=== PATIENT | male | born 1980 | race Caucasian/White ===

== ENCOUNTER 2017-09-16 18:42 | Emergency (ER) | payer BC ==
[~2017-09-16] VITALS: Ht 195.6 cm; Wt 145.1 kg
[~2017-09-16 18:42] MED LIST: AMOXICILLIN250 MG PO; CEFDINIR300 MG PO; FLAGYL500 MG PO; FLUOXETINE HCL20 MG PO; NICODERM CQ1 EAC2 TOP; NORCO 10-325 T1 EACH PO; PEPCID20 MG PO; ZOFRAN ODT4 MG PO; ZOLOFT25 MG
--- OUTSIDE RECORDS SUMMARY | 2017-09-16 18:44 | XMS REPORT | Clinical Summary ---
Author Author [facility] Address Unknown Phone Unavailable Care Team Providers Care Ripening Room Operator Name Role Phone Peter Yoder MD PCP Unavailable Allergies Active Allergy Reactions Severity Noted Date Comments Succinylcholine Other (See Comments) 03/26/2017 "pseudocholinesterase deficiency" Current Medications Prescription Sig. Disp. Refills Start End Date Status Date FLUoxetine (PROzac) 40 MG Take 40 mg by mouth Active capsule daily. methocarbamol (ROBAXIN) Take 750 mg by mouth 3 03/27/20 Discontin 750 MG tablet (three) times a day as 17 ued needed for muscle spasms. atorvastatin (LIPITOR) 20 Take 20 mg by mouth 03/27/20 Discontin MG tablet daily. Default OP ins 17 ued celecoxib (CeleBREX) 200 Take 200 mg by mouth 2 03/27/20 Discontin MG capsule (two) times a day. 17 ued acetaminophen-codeine Take 1 tablet by mouth 03/27/20 Discontin (TYLENOL WITH CODEINE #3) every 4 (four) hours as 17 ued 300-30 mg per tablet needed for moderate pain. ondansetron ODT Take 1 tablet (4 mg 03/27/20 04/26/20 (ZOFRAN-ODT) 4 MG total) by mouth every 8 17 17 disintegrating tablet (eight) hours as needed for nausea or vomiting for up to 30 days. enoxaparin (LOVENOX) 40 Inject 0.4 mL (40 mg 12 mL 0 03/27/20 mg/0.4 mL syringe total) under the skin 17 17 daily for 14 days. ACETAMINOPHEN WITH Take 15 mL by mouth every 400 mL 0 03/27/2004/11 CODEINE 4 (four) hours as needed 17 17 (ACETAMINOPHEN-CODEINE) (Pain) for up to 15 days. 120 mg-12 mg /5 mL (5 mL) solution pantoprazole (PROTONIX) Take 1 tablet (40 mg 30 tablet 0 03/27/20 40 MG EC tablet total) by mouth daily for 17 17 30 days. Active Problems Problem Noted Date Morbid obesity with BMI of 40.0-44.9, adult 03/26/2017 Diabetes mellitus 03/26/2017 Encounters Date Type Specialty Care Team Description 03/27/2017 [facility] Radiology Vijay Juarez Encounter MD Remi 03/26/2017 [facility] General Internal Medicine Vijay Juarez - Encounter MD Remi 03/27/2017 03/26/2017 Anesthesia General Surgery Kemar Butcher Event MD 03/26/2017 Procedure Pass General Surgery 03/26/2017 Surgery General Surgery Vijay Juarez LAPAROSCOPIC SLEEVE MD Remi GASTRECTOMY 03/12/2017 [facility] Radiology Vijay Juarez Morbid obesity, Encounter MD Remi unspecified obesity type 03/12/2017 Pre-Admit Pre-Admission Testing Vijay Juarez Morbid obesity, Testing MD Remi unspecified obesity type Appointment (Primary Dx) 02/21/2017 Transcribe Access Vijay Juarez Morbid obesity with BMI Orders MD Remi of 40.0-44.9, adult (Primary Dx) after 09/15/2016 Family History Medical History Relation Name Comments Diabetes Father Heart disease Mother Hyperlipidemia Mother Relation Name Status Comments Father Alive Mother Alive Social History Tobacco Use Types Packs/Day Years Used Date Never Smoker Smokeless Tobacco: Chew Current User Tobacco Cessation: Counseling Given: Yes Comments: chew tobaccos all day and surgeon aware Alcohol Use Drinks/Week oz/Week Comments Yes ocassionaly Sex Assigned at Date Recorded Not on file Last Filed Vital Signs Vital Sign Reading Time Taken Blood Pressure 161/83 03/27/2017 5:35 PM CDT Pulse 74 03/27/2017 5:35 PM CDT Temperature 37.3 C (99.1 F) 03/27/2017 4:07 PM CDT Respiratory Rate 24 03/27/2017 4:07 PM CDT Oxygen Saturation 97% 03/27/2017 4:07 PM CDT Inhaled Oxygen - - Concentration Weight 147 kg (324 lb 3 oz) 03/26/2017 4:00 PM CDT Height 193 cm (6' 4") 03/26/2017 4:00 PM CDT Body Mass Index 39.46 03/26/2017 4:00 PM CDT Plan of Treatment Health Maintenance Due Date Last Done Comments FOOT EXAM 10/31/1991 OPHTHALMOLOGY EXAM 10/31/1991 URINE MICROALBUMIN 10/31/1991 INFLUENZA VACCINE 03/11/2017 Implants Implanted Type Area Distribution Lineman Device Expiration Model / Identifier Date Serial / Lot Stapler Surgcl [facility]opath [facility] Anterior: W L GORE 2019 [id number] Flex 60 Endoscpc - [id number] Implants; Abdomen, / Implanted: 03/26/2017 (Quantity not Expanders; Middle / on file) Extenders; Quadrant/N [id number] Surgical on [id number] Wires Specific A Stapler Surgcl [facility] Surgical Anterior: W L GORE 2019 [id number] Flex 60 Endoscpc - [id number] Implants; Abdomen, / Implanted: 03/26/2017 (Quantity not Expanders; Middle / on file) Extenders; Quadrant/N [id number] Surgical on [id number] Wires Specific A Stapler Surgcl [facility] Surgical Anterior: W L GORE 2019 [id number] Flex 60 Endoscpc - [id number] Implants; Abdomen, / Implanted: 03/26/2017 (Quantity not Expanders; Middle / on file) Extenders; Quadrant/N [id number] Surgical on [id number] Wires Specific A Stapler Surgcl Endopath [facility] Surgical Anterior: W L GORE 2019 [id number] Flex 60 Endoscpc - [id number] Implants; Abdomen, / Implanted: 03/26/2017 (Quantity not Expanders; Middle / on file) Extenders; Quadrant/N [id number] Surgical on [id number] Wires Specific A Stapler Surgcl [facility] Surgical Anterior: W L GORE 2019 [id number] Flex 60 Endoscpc - [id number] Implants; Abdomen, / Implanted: 03/26/2017 (Quantity not Expanders; Middle / on file) Extenders; Quadrant/N [id number] Surgical on [id number] Wires Specific A [facility] N/A: [employer]ON 02/08/2020 [id number] / Implanted: Qty: 3 on 03/26/2017 by Abdomen ENDO-SURGERY / Vijay Juarez MD [id number] [facility] N/A: [employer] 09/10/2019 [id number] / Implanted: Qty: 1 on 03/26/2017 by Angelo / Vijay Juarez MD [id number] [facility] N/A: [employer] 01/09/2020 [id number] / Implanted: Qty: 1 on 03/26/2017 by Angelo / Vijay Juarez MD [id number] Procedures Procedure Name Priority Date/Time Associated Diagnosis Comments W[place] AN ELECTIVE Routine 03/26/2017 ENDOTRACHEAL AIRWAY 1:11 PM CDT Procedure Note - Kemar Butcher MD - 03/26/2017 1:10 PM CDT Airway Date/Time: 03/26/2017 12:52 PM Performed by: KEMAR BUTCHER Authorized by: KEMAR BUTCHER Location: OR Urgency: Elective Difficult Airway: No Anesthesio logist: KEMAR BUTCHER Preoxygena chance with 100% O2: Yes C-spine Precaution s Maintained Throughout : Yes Mask Ventilatio n: Easy mask Final Airway Type: Endotrache al airway Final Endotrache al Airway: ETT Cuffed: Yes Technique Used: Direct laryngosco py Devices/Me thods Used in Placement: Intubatin g stylet Insertion Site: Oral Blade Type: Brittany Laryngosco pe Blade/Vide olaryngosc ope Blade Size: 4 ETT Size (mm): 7.0 Cuff at minimum occlusion pressure: Yes Measured from: Lips ETT to Lips (cm): 24 Laryngosco pic view: Grade IIa - partial view of glottis Rapid Sequence Induction (RSI): No Modified RSI: No Number of Attempts at Approach: 1 LAPAROSCOPIC SLEEVE 03/26/2017 Morbid obesity due to GASTRECTOMY 12:00 PM CDT excess calories Special Needs O/P, NO SPEC, LISSETTE HUERTA TO ASSIST after 09/15/2016 Results * FL Upper GI (03/27/2017 9:13 AM) Specimen Performing Laboratory [facility] [address] [place] [address] Narrative EXAMINATION: FL UPPER GI CLINICAL HISTORY: Post Op, sleeve COMPARISON: None. TECHNIQUE: A single contrast study was performed. Water-soluble contrast was used. Fluoroscopic and overhead images were obtained. FINDINGS: The esophagus demonstrates normal peristalsis and mucosa. There is no gastroesophageal reflux, hiatal hernia, stricture or persistent filling defect. Postoperative changes from sleeve gastrectomy are seen. Contrast traverses the operative site without delay. There is no extravasation. The antrum and duodenum are free of masses and ulcerations. IMPRESSION: Satisfactory appearance post sleeve gastrectomy. No extravasation. Fluoroscopy time: 0.7 minutes Dose area product: 820.21 uGy*m2 Reference air Kerma: 33.10 mGy [id number] Procedure Note Hm Interface, Radiology Results Incoming - 03/27/2017 9:21 AM CDT EXAMINATION: FL UPPER GI CLINICAL HISTORY: Post Op, sleeve COMPARISON: None. TECHNIQUE: A single contrast study was performed. Water-soluble contrast was used. Fluoroscopic and overhead images were obtained. FINDINGS: The esophagus demonstrates normal peristalsis and mucosa. There is no gastroesophageal reflux, hiatal hernia, stricture or persistent filling defect. Postoperative changes from sleeve gastrectomy are seen. Contrast traverses the operative site without delay. There is no extravasation. The antrum and duodenum are free of masses and ulcerations. IMPRESSION: Satisfactory appearance post sleeve gastrectomy. No extravasation. Fluoroscopy time: 0.7 minutes Dose area product: 820.21 uGy*m2 Reference air Kerma: 33.10 mGy [id number] * Estimated GFR (03/27/2017 5:35 AM) Only the most recent of 2 results within the time period is included. Component Value Ref Range GFR Non Af Amer >90 mL/min/1.73 m2 GFR Af Amer >90 mL/min/1.73 m2 Comment: Chronic kidney disease: <60 mL/min/1.73m2 Kidney failure: <15 mL/min/1.73m2 The estimated GFR is calculated from the IDMS-traceable Modification of Diet in Renal Disease Equation. The accuracy of the calculation is poor when the creatinine is normal. Calculated values >90 mL/min/1.73m2 are not reported. This equation has not been validated in children (<18 years), women, the elderly (>70 years), or ethnic groups other than Caucasians and Americans. Specimen Performing Laboratory Plasma specimen [facility] DEPARTMENT OF PATHOLOGY AND GENOMIC MEDICINE [address] [place] [address]. [address] [place] [address] * CBC with platelet and differential (03/27/2017 5:35 AM) Only the most recent of 2 results within the time period is included. Component Value Ref Range WBC 11.8 (H) 4.5 - 11.0 k/uL RBC 4.76 4.40 - 6.00 M/uL HGB 14.0 14.0 - 18.0 g/dL HCT 42.7 41.0 - 51.0 % MCV 89.7 82.0 - 100.0 fL MCH 29.4 27.0 - 34.0 pg MCHC 32.8 31.0 - 37.0 g/dL RDW - SD 45.7 37.0 - 55.0 fL MPV 9.7 8.8 - 13.2 fL Platelet count 226 150 - 400 K/uL Nucleated RBC 0.00 /100 WBC Neutrophils 83.8 (H) 39.0 - 69.0 % Lymphocytes 9.1 (L) 25.0 - 45.0 % Monocytes 6.1 0.0 - 10.0 % Eosinophils 0.1 0.0 - 5.0 % Basophils 0.2 0.0 - 1.0 % Immature granulocytes 0.7Comment: "Immature granulocytes" 0.0 - 1.0 % (promyelocytes, myelocytes, metamyelocytes) Specimen Performing Laboratory Blood [facility] DEPARTMENT OF PATHOLOGY AND GENOMIC MEDICINE [address] [place] [address] * Basic metabolic panel (03/27/2017 5:35 AM) Only the most recent of 2 results within the time period is included. Component Value Ref Range Sodium 136 135 - 148 mEq/L Potassium 4.3 3.5 - 5.0 mEq/L Chloride 101 99 - 109 mEq/L CO2 21 (L) 24 - 31 mEq/L Anion gap 14 7 - 15 mEq/L Comment: Starting from November , anion gap calculation no longer incorporates potassium. Please note the change. BUN 9 8 - 24 mg/dL Creatinine 0.7 0.5 - 1.5 mg/dL Glucose 101 (H) 65 - 99 mg/dL Calcium 10.8 (H) 8.6 - 10.6 mg/dL Specimen Performing Laboratory Plasma specimen [facility] DEPARTMENT OF PATHOLOGY AND GENOMIC MEDICINE [address] [place] [address]. [address] [place] [address] * XR Chest 2 Vw (03/12/2017 10:00 AM) Specimen Performing Laboratory [facility] [address] [place] [address] Narrative EXAMINATION:XR CHEST 2 VW CLINICAL HISTORY:E66.01 Morbid (severe) obesity due to excess calories, PREOP COMPARISON:None IMPRESSION: The lungs are clear. The mediastinal contours and cardiac silhouette are unremarkable. The bones are unremarkable. [id number] Procedure Note Interface, Radiology Results Incoming - 03/12/2017 10:39 AM CDT EXAMINATION: XR CHEST 2 VW CLINICAL HISTORY: E66.01 Morbid (severe) obesity due to excess calories, PREOP COMPARISON: None IMPRESSION: The lungs are clear. The mediastinal contours and cardiac silhouette are unremarkable. The bones are unremarkable. [id number] * Prothrombin time with INR (03/12/2017 9:10 AM) Component Value Ref Range Prothrombin time 12.7 12.0 - 15.0 sec INR 1.0 Comment: The International Normalized Ratio (INR) is a therapeutic monitoring tool for patients who are stable on oral anticoagulant therapy. An INR of 2.0-3.0 is suggested for deep vein thrombosis/pulmonary embolism. Specimen Performing Laboratory Blood [facility] DEPARTMENT OF PATHOLOGY AND GENOMIC MEDICINE [address] [place] [address]. [address] [place] [phone] after 09/15/2016
[2017-09-16] MEDS ORDERED: KETOROLAC TROMETHAMINE 60 MG/2 ML VIAL IM ONE (20:00)
[2017-09-16 20:58] VITALS: BP 142/89
== END 2017-09-16 21:02 | disposition home or self-care (01) ==
LOC: ER 18:42
DX: M54.5 Low back pain (principal); M54.16 Radiculopathy, lumbar region; G93.5 Compression of brain; F32.9 Major depressive disorder, single episode, unspecified; E66.9 Obesity, unspecified
CPT/HCPCS: 99282; J1885

== ENCOUNTER 2017-09-17 12:01 | Emergency (ER) | payer BC ==
[~2017-09-17] VITALS: Ht 195.6 cm; Wt 145.1 kg
--- OUTSIDE RECORDS SUMMARY | 2017-09-17 12:04 | XMS REPORT | Continuity of Care Document ---
Author Author [facility] Organization [facility] Address [address] [place] [address] Phone Unavailable Care Team Providers Care Molder Floor Name Role Phone CONCHA DE LA CRUZ MD PCP Insurance Providers Guarantor Bonifacio Lopez Address [address] [place] [address] Email NONE Payer Blue [employer] Exchange Policy Number [id number] Subscriber's Name JaniceDylanbess Anderson Relationship 18 Self / Same As Patient Group Number [id number] Advance Directives Directive Response Recorded Date/Time Does the patient have an advance directive? No 11/04/15 5:09pm If yes, is advance directive on file with [facility]? No 11/04/15 5:09pm If not on file with [facility] will patient provide a copy? No 11/04/15 5:09pm Problems Medical Problem Onset Date Status Confusion and disorientation 11/04/2015 Acute Dehydration 11/04/2015 Acute Medications Current Home Medications Medication Dose Units Route Directions Days Qty Instructions Start Date Famotidine (Pepcid) 20 Mg Tablet 20 Mg Oral Twice Daily Before Meals 30 Days 11/06/15 Fluoxetine Hcl 20 Mg Capsule 40 Mg Oral Daily 30 Cap Hydrocodone Bit/Acetaminophen (Lutcher 10-325 Tablet) 1 Each Tablet 10 Mg Oral Every 4 Hours Metronidazole (Flagyl) 500 Mg Tablet 250 Mg Oral Every 8 Hours 15 11/06/15 Nicotine (Nicoderm Cq) 1 Each Patch.td24 21 Mg Topically Daily 21 Each 11/06/15 Ondansetron (Zofran Odt) 4 Mg Tab.rapdis 4 Mg Oral Every 6 Hours Past Home Medications Medication Directions Ordered Status Amoxicillin 250 Mg Capsule, 500 Mg Oral Three Times A Day Discontinued Cefdinir (Omnicef) 300 Mg Capsule, 300 Mg Oral Daily Discontinued Sertraline Hcl (Zoloft) 25 Mg Tablet, Discontinued Social History Social History Problem Response Recorded Date/Time Onset Date Status Hx Psychiatric Problems Yes 11/04/2015 5:09pm Not Applicable Not Applicable Hx Eating Disorder No 11/04/2015 5:09pm Not Applicable Not Applicable Hx Substance Use Disorder No 11/04/2015 5:09pm Not Applicable Not Applicable Hx Depression Yes 11/04/2015 5:09pm Not Applicable Not Applicable Hx Alcohol Use Y - socially 11/04/2015 5:09pm Not Applicable Not Applicable Hx Substance Use Treatment No 11/04/2015 5:09pm Not Applicable Not Applicable Hx Physical Abuse No 11/04/2015 5:09pm Not Applicable Not Applicable Smoking Status Start Date Stop Date Current every day smoker Hospital Discharge Instructions No hospital discharge instruction information available. Plan of Care Discharge Date 09/16/17 9:02pm Disposition HOME, SELF-CARE Condition at Discharge Stable Instructions/Education Provided Back Pain Forms Provided Work/School Excuse Prescriptions See Medication Section Additional Instructions/Education FOLLOW UP WITH DR. ED LA CRUZ TOMORROW Functional Status No functional status information available. Allergies, Adverse Reactions, Alerts No known allergies. Immunizations No immunization information available. Vital Signs Acute Vital Signs Vital Response Date/Time Temperature (Fahrenheit) 97.4 degrees F (97.6 - 99.5) 09/16/2017 8:58pm Pulse Pulse Rate (adult) 79 bpm (60 - 90) 09/16/2017 8:58pm Respiratory Rate 18 bpm (12 - 24) 09/16/2017 8:58pm Blood Pressure 142/89 mm Hg 09/16/2017 8:58pm Height 6 ft 5 in 09/16/2017 7:43pm Weight 320 lb 09/16/2017 7:43pm Body Mass Index 37.9 kg/m^2 09/16/2017 7:43pm Results No relevant diagnostic test, laboratory data and/or discharge summary information available. Procedures No procedure information available. Encounters Encounter Location Arrival/Admit Date Discharge/Depart Date Attending Provider Departed Emergency Room [facility] 09/16/17 6:42pm 9:02pm SELENA TANG MD
--- OUTSIDE RECORDS SUMMARY | 2017-09-17 12:04 | XMS REPORT | Clinical Summary ---
Author Author [facility] Address Unknown Phone Unavailable Care Team Providers Care Truck Caterer Name Role Phone Peter Yoder MD PCP [...] Date Type Specialty Care Team Description 03/27/2017 [facility] Radiology Vijay Juarez Encounter MD Remi 03/26/2017 [facility] General Internal Medicine Vijay Juarez - Encounter MD Remi 03/27/2017 03/26/2017 Anesthesia General Surgery Kemar Butcher Event MD 03/26/2017 Procedure Pass General Surgery 03/26/2017 Surgery General Surgery Vijay Juarez LAPAROSCOPIC SLEEVE MD Remi GASTRECTOMY 03/12/2017 [facility] Radiology Vijay Juarez Morbid obesity, Encounter MD Remi unspecified obesity type 03/12/2017 Pre-Admit Pre-Admission Testing Vijay Juarez Morbid obesity, Testing MD Remi unspecified obesity type Appointment (Primary Dx) 02/21/2017 Transcribe Access Vijay Juarez Morbid obesity with BMI Orders MD Remi of 40.0-44.9, adult (Primary Dx) after 09/16/2016 Family History Medical History Relation Name Comments [...] INFLUENZA VACCINE 03/11/2017 Implants Implanted Type Area Panama Hat Blocker Device Expiration Model / Identifier Date Serial / Lot Stapler Surgcl Endopath [facility] Anterior: W L GORE 2019 [id number] Flex 60 Endoscpc - [id number] Implants; Abdomen, / Implanted: 03/26/2017 (Quantity not Expanders; Middle / on file) Extenders; Quadrant/N [id number] Surgical on [id number] Wires Specific A Stapler Surgcl [facility] Anterior: W L GORE 2019 [id number] Flex 60 Endoscpc - [id number] Implants; Abdomen, / Implanted: 03/26/2017 (Quantity not Expanders; Middle / on file) Extenders; Quadrant/N [id number] Surgical on [id number] Wires Specific A Stapler Surgcl [facility] Anterior: W L GORE 2019 [id number] Flex 60 Endoscpc - [id number] Implants; Abdomen, / Implanted: 03/26/2017 (Quantity not Expanders; Middle / on file) Extenders; Quadrant/N [id number] Surgical on [id number] Wires Specific A Stapler Surgcl [facility] Anterior: W L GORE 2019 [id number] Flex 60 Endoscpc - [id number] Implants; Abdomen, / Implanted: 03/26/2017 (Quantity not Expanders; Middle / on file) Extenders; Quadrant/N [id number] Surgical on [id number] Wires Specific A Stapler Surgcl [facility] Anterior: W L GORE 2019 [id number] Flex 60 Endoscpc - [id number] Implants; Abdomen, / Implanted: 03/26/2017 (Quantity not Expanders; Middle / on file) Extenders; Quadrant/N [id number] Surgical on [id number] Wires Specific A [facility] N/A: [employer] 02/08/2020 [id number] / Implanted: Qty: 3 on 03/26/2017 by Abdomen ENDO-SURGERY / Vijay Juarez MD [id number] [facility] N/A: [employer] 09/10/2019 [id number] / Implanted: Qty: 1 on 03/26/2017 by Angelo / Vijay Juarez MD [id number] [facility] N/A: [employer] 01/09/2020 [id number] / Implanted: Qty: 1 on 03/26/2017 by Angelo / Vijay Juarez MD [id number] Procedures Procedure Name Priority Date/Time Associated Diagnosis Comments [place] AN ELECTIVE Routine 03/26/2017 ENDOTRACHEAL AIRWAY 1:11 [...] NO SPEC, LISSETTE HUERTA TO ASSIST after 09/16/2016 Results * FL Upper GI (03/27/2017 9:13 AM) Specimen Performing Laboratory [facility] [address] [place] [address] Narrative EXAMINATION: FL UPPER GI CLINICAL HISTORY: [...] 820.21 uGy*m2 Reference air Kerma: 33.10 mGy [id number] Procedure Note Hm Interface, Radiology Results Incoming [...] 820.21 uGy*m2 Reference air Kerma: 33.10 mGy [id number] * Estimated GFR (03/27/2017 5:35 AM) Only [...] and Americans. Specimen Performing Laboratory Plasma specimen [facility] DEPARTMENT OF PATHOLOGY AND GENOMIC MEDICINE [address] [place] [address]. [address] [place] [address] * CBC with platelet and differential (03/27/2017 [...] (promyelocytes, myelocytes, metamyelocytes) Specimen Performing Laboratory Blood [facility] DEPARTMENT OF PATHOLOGY AND GENOMIC MEDICINE [address] [place] [address] * Basic metabolic panel (03/27/2017 5:35 AM) [...] 10.6 mg/dL Specimen Performing Laboratory Plasma specimen [facility] DEPARTMENT OF PATHOLOGY AND GENOMIC MEDICINE [address] [place] [address]. [address] [place] [address] * XR Chest 2 Vw (03/12/2017 10:00 AM) Specimen Performing Laboratory [facility] [address] [place] [address] Narrative EXAMINATION:XR CHEST 2 VW CLINICAL HISTORY:E66.01 Morbid (severe) obesity due to excess calories, PREOP COMPARISON:None IMPRESSION: The lungs are clear. The mediastinal contours and cardiac silhouette are unremarkable. The bones are unremarkable. [id number] Procedure Note Interface, Radiology Results Incoming - 03/12/2017 10:39 AM CDT EXAMINATION: XR CHEST 2 VW CLINICAL HISTORY: E66.01 Morbid (severe) obesity due to excess calories, PREOP COMPARISON: None IMPRESSION: The lungs are clear. The mediastinal contours and cardiac silhouette are unremarkable. The bones are unremarkable. [id number] * Prothrombin time with INR (03/12/2017 9:10 AM) Component Value Ref Range Prothrombin time 12.7 12.0 - 15.0 sec INR 1.0 Comment: The International Normalized Ratio (INR) is a therapeutic monitoring tool for patients who are stable on oral anticoagulant therapy. An INR of 2.0-3.0 is suggested for deep vein thrombosis/pulmonary embolism. Specimen Performing Laboratory Blood [facility] DEPARTMENT OF PATHOLOGY AND GENOMIC MEDICINE [address] [place] [address]. [address] [place] [address] after 09/16/2016
[2017-09-17] MEDS ORDERED: MORPHINE SULFATE 5 MG/ML VIAL IV ONE (12:45)
[2017-09-17] MEDS ORDERED: DEXAMETHASONE SOD PHOS 10 MG/1 ML VIAL IV ONE (12:45)
[2017-09-17] MEDS ORDERED: MORPHINE SULFATE 2 MG/ML SYR IV NR (14:15)
--- NOTE | 2017-09-17 14:26 | Diagnostic Imaging Report ---
EXAMINATION: MRI of the lumbar spine without contrast HISTORY: Severe low back pain radiating to the left, worsening for the last 3 weeks COMPARISON: None available TECHNIQUE: Sagittal T1, T2, STIR; axial T2 and proton density. FINDINGS: It is assumed that there are 5 lumbar vertebrae. Curvature/Alignment: Normal lordosis. Vertebrae: No evidence of recent fracture, infection, or neoplasm. Conus: Normal, terminating at L1 Cauda equina: Unremarkable. Lower thoracic: Unremarkable. Paraspinal soft tissues: Unremarkable. Degenerative changes: L1-L2: Unremarkable. L2-L3: Unremarkable. L3-L4: Mild symmetric disc bulge with a small posterior central annular fissure. No associated canal or foraminal stenoses L4-L5: Mild symmetric disc bulge with a small posterior central annular fissure. Mild facet arthrosis. No canal or foraminal stenosis. L5-S1: Mild asymmetric to the left disc bulge with a small left posterolateral/foraminal annular fissuring. Moderate facet arthrosis minimally on the left. Mild narrowing of the left lateral recess and left foramen without evidence of neurocompression at this time. IMPRESSION: 1. Moderate narrowing of the left lateral recess and left foramen at L5-S1 due to degenerative changes without definite nerve root compression. 2. Prominent facet arthrosis mainly on the left at L5-S1. Signed by: Dr. Brittany King M.D. on 09/17/2017 2:22 PM
[2017-09-17 14:34] LABS: BASOPHILS % 0.4 % (0.0-1.0); EOSINOPHILS % 0.1 % (0.0-6.0); HEMATOCRIT 47.4 % (38.2-49.6); HEMOGLOBIN 15.2 g/dL (14.0-18.0); LYMPHOCYTES # (AUTO) 0.6 (1.0-3.2); LYMPHOCYTES % 7.4 % (18.0-39.1); MEAN CORPUSCULAR HEMOGLOBIN 29.5 pg (28-32); MEAN CORPUSCULAR HGB CONC 32.1 g/dL (31-35); MONOCYTES # (AUTO) 0.3 (0.2-0.8); MONOCYTES % 3.3 % (4.4-11.3); NEUTROPHILS # (AUTO) 7.4 (2.1-6.9); NEUTROPHILS % 87.7 % (38.7-80.0); PLATELET COUNT 258 x10e3/uL (140-360); RED BLOOD COUNT 5.15 x10e6/uL (4.3-5.7); RED CELL DISTRIBUTION WIDTH 14.4 % (11.7-14.4)
[2017-09-17 14:47] LABS: ANION GAP 13.1 mmol/L (8-16); BLOOD UREA NITROGEN 14 mg/dL (7-26); BUN/CREATININE RATIO 19 (6-25); CALCIUM 10.7 mg/dL (8.4-10.2); CARBON DIOXIDE 24 mmol/L (22-29); CHLORIDE 107 mmol/L (98-107); CREATININE, SERUM 0.73 mg/dL (0.72-1.25); EST GLOMERULAR FILTRATION RATE > 60 ML/MIN (60-); GLUCOSE 99 mg/dL (74-118); POTASSIUM 4.1 mmol/L (3.5-5.1); SODIUM 140 mmol/L (136-145)
[2017-09-17] MEDS ORDERED: FENTANYL CITRATE/PF 100MCG/2 ML INJ IJ ONE (15:30)
[2017-09-17 16:51] VITALS: BP 135/86
== END 2017-09-17 16:55 | disposition home or self-care (01) ==
LOC: ER 12:01
DX: M54.5 Low back pain (principal); S39.012A Strain of muscle, fascia and tendon of lower back, initial encounter; G93.5 Compression of brain; F32.9 Major depressive disorder, single episode, unspecified; E66.9 Obesity, unspecified
CPT/HCPCS: 36415; 72148; 80048; 85025; 96374; 99283; J1100; J2270

== ENCOUNTER 2017-12-27 19:41 | Emergency (ER) | payer BC ==
[~2017-12-27] VITALS: Ht 195.6 cm; Wt 104.3 kg
--- OUTSIDE RECORDS SUMMARY | 2017-12-27 19:43 | XMS REPORT | Continuity of Care Document ---
Author Author [facility] Organization [facility] Address [address] [place] [address] Phone Unavailable Care Team Providers Care Manager Ems Name Role Phone CONCHA DE LA CRUZ MD PCP Insurance Providers Guarantor Bonifacio Lopez Address [address] [place] [address] Email NONE [facility] Policy Number [id number] Subscriber's Name JaniceBonifacio Anderson Relationship 18 Self / Same As Patient Group Number [id number] Effective Date 17 Advance Directives Directive Response Recorded Date/Time Does the patient have an advance directive? No 11/04/15 5:09pm If yes, is advance directive on file with [facility]? No 11/04/15 5:09pm If not on file with [facility] will patient provide a copy? No 09/17/17 1:36pm Do you have a Directive to Physician? No 09/17/17 1:36pm Do you have a Medical Power of Corporate Trainer? No 09/17/17 1:36pm Do you have an out of hospital Do Not Resuscitate Order? No 09/17/17 1:36pm Do you have any special needs we should be aware of? No 09/17/17 1:36pm Do you have a support person here with you today? Yes 09/17/17 1:36pm Did patient receive Notice of Privacy Practices? Yes 09/17/17 1:36pm Did patient receive patient rights and responsibilities? Yes 09/17/17 1:36pm Problems Medical Problem Onset Date Status Confusion and disorientation 11/04/2015 Acute Dehydration 11/04/2015 Acute Medications Current Home Medications Medication Dose Units Route Directions Days Qty Instructions Start Date Famotidine (Pepcid) 20 Mg Tablet 20 Mg Oral Twice Daily Before Meals 30 Days 11/06/15 Fluoxetine Hcl 20 Mg Capsule 40 Mg Oral Daily 30 Cap Hydrocodone Bit/Acetaminophen (Brookesmith 10-325 Tablet) 1 Each Tablet 10 Mg [...] Applicable Smoking Status Start Date Stop Date Never Smoker Hospital Discharge Instructions No hospital discharge instruction information available. Plan of Care Discharge Date 09/17/17 4:55pm Disposition HOME, SELF-CARE Condition at Discharge Stable Instructions/Education Provided Back Pain Strains Forms Provided Work/School Excuse Prescriptions See Medication Section Referrals CONCHA DE LA CRUZ MD Address: [address] [place] [address] [phone] Additional Instructions/Education Your diagnosis today is Acute Lumbar Strain. Continue taking Motrin 2-3 tablets every 4-6 hours mild to moderate pain. Use the Brookesmith for severe pain as prescribed. Follow up with your doctor on Friday. Functional Status No functional status information available. Allergies, Adverse Reactions, Alerts No known allergies. Immunizations No immunization information available. Vital Signs Acute Vital Signs Vital Response Date/Time Temperature (Fahrenheit) 97.4 degrees F (97.6 - 99.5) 09/16/2017 8:58pm Pulse Pulse Rate (adult) 79 bpm (60 - 90) 09/16/2017 8:58pm Respiratory Rate 16 bpm (12 - 24) 09/17/2017 4:51pm Blood Pressure 135/86 mm Hg 09/17/2017 4:51pm Height 6 ft 5 in 09/17/2017 12:33pm Weight 320 lb 09/17/2017 12:33pm Body Mass Index 37.9 kg/m^2 09/17/2017 12:33pm Results Laboratory Results Test Name Result Units Flags Reference Collection Date/Time Result Date/ Time Comments White Blood Count 8.40 x10e3/uL 4.8-10.8 09/17/2017 2:20pm 09/17/2017 2 :34pm Red Blood Count 5.15 x10e6/uL 4.3-5.7 09/17/2017 2:20pm 09/17/2017 2: 34pm Hemoglobin 15.2 g/dL 14.0-18.0 09/17/2017 2:20pm 09/17/2017 2:34pm Hematocrit 47.4 % 38.2-49.6 09/17/2017 2:20pm 09/17/2017 2:34pm Mean Corpuscular Volume 92.0 fL 81-99 09/17/2017 2:20pm 09/17/2017 2: 34pm Mean Corpuscular Hemoglobin 29.5 pg 28-32 09/17/2017 2:20pm 09/17/2017 2:34pm Mean Corpuscular Hemoglobin Concent 32.1 g/dL 31-35 09/17/2017 2:20pm 09/17/2017 2:34pm Red Cell Distribution Width 14.4 % 11.7-14.4 09/17/2017 2:20pm 2017 2:34pm Platelet Count 258 x10e3/uL 140-360 09/17/2017 2:20pm 09/17/2017 2: 34pm Neutrophils (%) (Auto) 87.7 % H 38.7-80.0 09/17/2017 2:20pm 09/17/2017 2 :34pm Lymphocytes (%) (Auto) 7.4 % L 18.0-39.1 09/17/2017 2:20pm 09/17/2017 2: 34pm Monocytes (%) (Auto) 3.3 % L 4.4-11.3 09/17/2017 2:20pm 09/17/2017 2: 34pm Eosinophils (%) (Auto) 0.1 % 0.0-6.0 09/17/2017 2:20pm 09/17/2017 2: 34pm Basophils (%) (Auto) 0.4 % 0.0-1.0 09/17/2017 2:20pm 09/17/2017 2:34pm IM GRANULOCYTES % 1.1 % H 0.0-1.0 09/17/2017 2:20pm 09/17/2017 2:34pm Neutrophils # (Auto) 7.4 H 2.1-6.9 09/17/2017 2:20pm 09/17/2017 2: 34pm Lymphocytes # (Auto) 0.6 L 1.0-3.2 09/17/2017 2:20pm 09/17/2017 2: 34pm Monocytes # (Auto) 0.3 0.2-0.8 09/17/2017 2:20pm 09/17/2017 2:34pm Eosinophils # (Auto) 0.0 0.0-0.4 09/17/2017 2:20pm 09/17/2017 2:34pm Basophils # (Auto) 0.0 0.0-0.1 09/17/2017 2:20pm 09/17/2017 2:34pm Absolute Immature Granulocyte (auto 0.09 x10e3/uL 0-0.1 09/17/2017 2: 20pm 09/17/2017 2:34pm Sodium Level 140 mmol/L 136-145 09/17/2017 2:20pm 09/17/2017 2:48pm Potassium Level 4.1 mmol/L 3.5-5.1 09/17/2017 2:20pm 09/17/2017 2:48pm Chloride Level 107 mmol/L 98-107 09/17/2017 2:20pm 09/17/2017 2:48pm Carbon Dioxide Level 24 mmol/L 22-29 09/17/2017 2:20pm 09/17/2017 2: 48pm Anion Gap 13.1 mmol/L 8-16 09/17/2017 2:20pm 09/17/2017 2:48pm Blood Urea Nitrogen 14 mg/dL 7-26 09/17/2017 2:20pm 09/17/2017 2:48pm Creatinine 0.73 mg/dL 0.72-1.25 09/17/2017 2:20pm 09/17/2017 2:48pm BUN/Creatinine Ratio 19 6-25 09/17/2017 2:20pm 09/17/2017 2:48pm Estimat Glomerular Filtration Rate > 60 ML/MIN 60- 09/17/2017 2:20pm 2:48pm Ranges were taken from the National Kidney Disease Education Program and the National Kidney Foundation literature. Reference ranges: 60 or greater: Normal 16-59 (for 3 consecutive months): Chronic kidney disease 15 or less: Kidney failure Glucose Level 99 mg/dL 74-118 09/17/2017 2:20pm 09/17/2017 2:48pm Calcium Level 10.7 mg/dL H 8.4-10.2 09/17/2017 2:20pm 09/17/2017 2:48pm Procedures Procedure Status Date Provider(s) Magnetic resonance imaging of lumbar spine without contrast Active 09/17/17 CECILIA SARGENT PERSONAL PROPERTY ASSESSOR Encounters Encounter Location Arrival/Admit Date Discharge/Depart Date Attending Provider Departed Emergency Room [facility] 09/17/17 12:01pm 09/17 4:55pm FLORA IBANEZ MD Departed Emergency Room [facility] 09/16/17 6:42pm 9:02pm SELENA TANG MD
--- OUTSIDE RECORDS SUMMARY | 2017-12-27 19:43 | XMS REPORT ---
Author Author [facility] Address Unknown Phone Unavailable Care Team Providers Care Water Filter Cleaner Name Role Phone FLORA IBANEZ Unavailable Unavailable Problems This patient has no known problems. Allergies, Adverse Reactions, Alerts This patient has no known allergies or adverse reactions. Medications This patient has no known medications. Results Test Description Test Time Test Comments Text Results Atomic Results Result Comments MRI SPINE LUMBAR WO [place] [address] Patient Name: VOLODYMYR LOPEZ MR #: [id number] : 1980 Age/Sex: 36/M Req #: [id number] Adm Physician: Ordered by: CECILIA SARGENT COMPRESSED GAS TESTER Report #: [id number] Location: ER Room/Bed: Procedure: [id number] MRI/MRI SPINE LUMBAR WO Exam Date: Exam Time: REPORT STATUS: Signed EXAMINATION: MRI of the lumbar spine without contrast HISTORY: Severe low back pain radiating to the left, worsening for the last 3 weeks COMPARISON: None available TECHNIQUE : Sagittal T1, T2, STIR; axial T2 and proton density. FINDINGS: It is assumed that there are 5 lumbar vertebrae. Curvature/Alignment: Normal lordosis. Vertebrae: No evidence of recent fracture, infection, or neoplasm. Conus: Normal, terminating at L1 Cauda equina: Unremarkable. Lower thoracic: Unremarkable. Paraspinal soft tissues: Unremarkable. Degenerative changes: L1-L2: Unremarkable. L2-L3: Unremarkable. L3-L4: Mild symmetric disc bulge with a small posterior central annular fissure. No associated canal or foraminal stenoses L4-L5: Mild symmetric disc bulge with a small posterior central annular fissure. Mild facet arthrosis. No canal or foraminal stenosis. L5-S1: Mild asymmetric to the left disc bulge with a small left posterolateral/foraminal annular fissuring. Moderate facet arthrosis minimally on the left. Mild narrowing of the left lateral recess and left foramen without evidence of neurocompression at this time. IMPRESSION: 1. Moderate narrowing of the left lateral recess and left foramen at L5-S1 due to degenerative changes without definite nerve root compression. 2. Prominent facet arthrosis mainly on the left at L5-S1. Signed by: Dr. Elisabeth King M.D. on 09/17/2017 2:22 PM Dictated By: ELISABETH KING MD 1422 Transcribed By: LEAH on 09/17/17 1422 COPY TO: CECILIA SARGENT NP
--- OUTSIDE RECORDS SUMMARY | 2017-12-27 19:43 | XMS REPORT | Clinical Summary ---
Author Author [facility] Address Unknown Phone Unavailable Care Team Providers Care Bank Credit Card Collection Clerk Name Role Phone Peter Yoder MD PCP [...] Date Type Specialty Care Team Description 03/27/2017 [facility] Radiology Vijay Juarez Encounter MD Remi 03/26/2017 [facility] General Internal Medicine Vijay Juarez - Encounter MD Remi 03/27/2017 03/26/2017 Anesthesia General Surgery Kemar Butcher Event MD 03/26/2017 Procedure Pass General Surgery 03/26/2017 Surgery General Surgery Vijay Juarez LAPAROSCOPIC SLEEVE MD Remi GASTRECTOMY 03/12/2017 [facility] Radiology Vijay Juarez Morbid obesity, Encounter MD Remi unspecified obesity type 03/12/2017 Pre-Admit Pre-Admission Testing Vijay Juarez Morbid obesity, Testing MD Remi unspecified obesity type Appointment (Primary Dx) 02/21/2017 Transcribe Access Vijay Juarez Morbid obesity with BMI Orders MD Remi of 40.0-44.9, adult (Primary Dx) after 12/26/2016 Family History Medical History Relation Name Comments [...] Health Maintenance Due Date Last Done Comments DIABETIC FOOT EXAM 10/31/1991 DIABETIC RETINAL EYE EXAM 10/31/1991 URINE MICROALBUMIN 10/31/1991 INFLUENZA VACCINE 03/11/2018 Implants Implanted Type Area Optical Systems Engineer Device Expiration Model / Identifier Date Serial / Lot Stapler Surgcl Endopath [place] Surgical Anterior: W L GORE 2019 [id number] Flex 60 Endoscpc - [id number] Implants; Abdomen, / Implanted: 03/26/2017 (Quantity not Expanders; Middle / on file) Extenders; Quadrant/N [id number] Surgical on [id number] Wires Specific A Stapler Surgcl [facility] [place] Surgical Anterior: W L GORE 2019 [id number] Flex 60 Endoscpc - [id number] Implants; Abdomen, / Implanted: 03/26/2017 (Quantity not Expanders; Middle / on file) Extenders; Quadrant/N [id number] Surgical on [id number] Wires Specific A Stapler Surgcl Endopath [place] Surgical Anterior: W L GORE 2019 [id number] Flex 60 Endoscpc - [id number] Implants; Abdomen, / Implanted: 03/26/2017 (Quantity not Expanders; Middle / on file) Extenders; Quadrant/N [id number] Surgical on [id number] Wires Specific A Stapler Surgcl Endopath [place] Surgical Anterior: W L GORE 2019 [id number] Flex 60 Endoscpc - [id number] Implants; Abdomen, / Implanted: 03/26/2017 (Quantity not Expanders; Middle / on file) Extenders; Quadrant/N [id number] Surgical on [id number] Wires Specific A Stapler Surgcl Endopath [place] Surgical Anterior: W L GORE 2019 [id number] Flex 60 Endoscpc - [id number] Implants; Abdomen, / Implanted: 03/26/2017 (Quantity not Expanders; Middle / on file) Extenders; Quadrant/N [id number] Surgical on [id number] Wires Specific A [facility] [place] N/A: [employer] 02/08/2020 [id number] / Implanted: Qty: 3 on 03/26/2017 by Abdomen ENDO-SURGERY / Vijay Juarez MD [id number] [facility] [place] N/A: [employer] 09/10/2019 [id number] / Implanted: Qty: 1 on 03/26/2017 by Angelo / Vijay Juarez MD [id number] [facility] [place] N/A: [employer] 01/09/2020 [id number] / Implanted: Qty: 1 on 03/26/2017 by Vijay Sanford MD [id number] Procedures Procedure Name Priority Date/Time Associated Diagnosis Comments NE AN ELECTIVE Routine 03/26/2017 ENDOTRACHEAL AIRWAY 1:11 [...] NO SPEC, LISSETTE HUERTA TO ASSIST after 12/26/2016 Results * FL Upper GI (03/27/2017 9:13 AM) Specimen Performing Laboratory [facility] [address] [place] [address] Narrative EXAMINATION: FL UPPER GI CLINICAL HISTORY: [...] 820.21 uGy*m2 Reference air Kerma: 33.10 mGy [id number] Procedure Note Hm Interface, Radiology Results Incoming [...] 820.21 uGy*m2 Reference air Kerma: 33.10 mGy [id number] * Estimated GFR (03/27/2017 5:35 AM) Only [...] Americans. Specimen Performing Laboratory Plasma specimen [facility] DEPARTMENT OF PATHOLOGY AND GENOMIC MEDICINE [address] [place] [address]. [address] [place] [address] * CBC with platelet and differential (03/27/2017 [...] myelocytes, metamyelocytes) Specimen Performing Laboratory Blood [facility] DEPARTMENT OF PATHOLOGY AND GENOMIC MEDICINE [address] [place] [address]. [address] [place] [address] * Basic metabolic panel (03/27/2017 5:35 AM) [...] mg/dL Specimen Performing Laboratory Plasma specimen [facility] DEPARTMENT OF PATHOLOGY AND GENOMIC MEDICINE [address] [place], [place] [address]y. [address] [place] [address] * XR Chest 2 Vw (03/12/2017 10:00 AM) Specimen Performing Laboratory [facility] [address] [place] [address] Narrative EXAMINATION:XR CHEST 2 VW CLINICAL HISTORY:E66.01 Morbid (severe) obesity due to excess calories, PREOP COMPARISON:None IMPRESSION: The lungs are clear. The mediastinal contours and cardiac silhouette are unremarkable. The bones are unremarkable. [id number] Procedure Note Interface, Radiology Results Incoming - 03/12/2017 10:39 AM CDT EXAMINATION: XR CHEST 2 VW CLINICAL HISTORY: E66.01 Morbid (severe) obesity due to excess calories, PREOP COMPARISON: None IMPRESSION: The lungs are clear. The mediastinal contours and cardiac silhouette are unremarkable. The bones are unremarkable. [id number] * Prothrombin time with INR (03/12/2017 9:10 AM) Component Value Ref Range Prothrombin time 12.7 12.0 - 15.0 sec INR 1.0 Comment: The International Normalized Ratio (INR) is a therapeutic monitoring tool for patients who are stable on oral anticoagulant therapy. An INR of 2.0-3.0 is suggested for deep vein thrombosis/pulmonary embolism. Specimen Performing Laboratory Blood [facility] DEPARTMENT OF PATHOLOGY AND GENOMIC MEDICINE [address] [place] [address]. [address] [place] [address] after 12/26/2016
[2017-12-27] MEDS ORDERED: SODIUM CHLORIDE 0.9% 1000ML 1,000 ML ONE (19:49)
[2017-12-27] MEDS ORDERED: ACETAMIN/BUTALBITAL/CAFFEINE TAB ONE (19:49)
[2017-12-27] MEDS ORDERED: ONDANSETRON HCL 4 MG ORAL DISINTEGRATING TAB ONE (19:49)
[2017-12-27 19:59] LABS: BASOPHILS % 0.2 % (0.0-1.0); EOSINOPHILS # (AUTO) 0.1 (0.0-0.4); HEMATOCRIT 44.7 % (38.2-49.6); HEMOGLOBIN 14.7 g/dL (14.0-18.0); LYMPHOCYTES # (AUTO) 1.2 (1.0-3.2); LYMPHOCYTES % 15.4 % (18.0-39.1); MEAN CORPUSCULAR HEMOGLOBIN 29.8 pg (28-32); MEAN CORPUSCULAR HGB CONC 32.9 g/dL (31-35); MEAN CORPUSCULAR VOLUME 90.5 fL (81-99); MONOCYTES # (AUTO) 0.7 (0.2-0.8); NEUTROPHILS # (AUTO) 5.9 (2.1-6.9); NEUTROPHILS % 73.9 % (38.7-80.0); PLATELET COUNT 234 x10e3/uL (140-360); RED BLOOD COUNT 4.94 x10e6/uL (4.3-5.7)
[2017-12-27] MEDS ORDERED: ACETAMIN/BUTALBITAL/CAFFEINE TAB PO NR (20:00)
[2017-12-27] MEDS ORDERED: SODIUM CHLORIDE 0.9% 1000ML 1,000 ML IV ONE (20:00)
[2017-12-27] MEDS ORDERED: ONDANSETRON HCL 4 MG ORAL DISINTEGRATING TAB PO ONE (20:00)
[2017-12-27] MEDS ORDERED: ONDANSETRON HCL 4 MG ORAL DISINTEGRATING TAB SL NR (20:00)
[2017-12-27 20:19] LABS: ALANINE AMINOTRANSFERASE 10 IU/L (0-55); ALBUMIN 3.8 g/dL (3.5-5.0); ALBUMIN/GLOBULIN RATIO 1.1 (0.8-2.0); ALKALINE PHOSPHATASE 99 IU/L (40-150); ANION GAP 14.9 mmol/L (8-16); BLOOD UREA NITROGEN 9 mg/dL (7-26); BUN/CREATININE RATIO 13 (6-25); CALCIUM 11.5 mg/dL (8.4-10.2); CARBON DIOXIDE 23 mmol/L (22-29); CHLORIDE 107 mmol/L (98-107); CREATINE KINASE 25 IU/L (30-200); CREATININE, SERUM 0.71 mg/dL (0.72-1.25); EST GLOMERULAR FILTRATION RATE > 60 ML/MIN (60-); GLUCOSE 98 mg/dL (74-118); POTASSIUM 3.9 mmol/L (3.5-5.1); SODIUM 141 mmol/L (136-145)
[2017-12-27] MEDS ORDERED: KETOROLAC TROMETHAMINE 30 MG/ML VIAL IV STA (20:33)
[2017-12-27 21:15] LABS: BILIRUBIN,URINE NEGATIVE (NEGATIVE); CLARITY,URINE SL CLOUDY (CLEAR); COLOR,URINE YELLOW (YELLOW); KETONES,URINE 1+ (NEGATIVE); LEUKOCYTE ESTERASE ,URINE NEGATIVE (NEGATIVE); NITRITE,URINE NEGATIVE (NEGATIVE); PROTEIN,URINE DIPSTICK NEGATIVE (NEGATIVE); URINE UROBILINOGEN 0.2 mg/dL (0.2 - 1)
[2017-12-27 21:24] LABS: EPITHELIAL CELLS,URINE FEW /LPF; MUCUS,URINE FEW (RARE); RBC,URINE 0-5 /HPF (0-5)
[2017-12-30] MEDS ORDERED: BUTALBITAL25 GM PO (16:58)
== END 2017-12-27 21:48 | disposition home or self-care (01) ==
LOC: ER 19:41
CPT/HCPCS: 36415; 80053; 81001; 82550; 82553; 84484; 85025; 96374; 99284; J1885; J7030

== ENCOUNTER → 2017-12-31 | Day surgery (SDC) | payer BC ==
[~2017-12-31] MED LIST changes: +BUTALBITAL25 GM PO
--- OUTSIDE RECORDS SUMMARY | 2017-12-31 10:06 | XMS REPORT | Clinical Summary ---
Author Author [facility] Address Unknown Phone Unavailable Care Team Providers Care Bartender Manager Name Role Phone Peter Yoder MD PCP [...] Date Type Specialty Care Team Description 03/27/2017 [facility] Radiology Vijay Juarez Encounter MD Remi 03/26/2017 [facility] General Internal Medicine Vijay Juarez - Encounter MD Remi 03/27/2017 03/26/2017 Anesthesia General Surgery Kemar Butcher Event MD 03/26/2017 Procedure Pass General Surgery 03/26/2017 Surgery General Surgery Vijay Juarez LAPAROSCOPIC SLEEVE MD Remi GASTRECTOMY 03/12/2017 [facility] Radiology Vijay Juarez Morbid obesity, Encounter MD Remi unspecified obesity type 03/12/2017 Pre-Admit Pre-Admission Testing Vijay Juarez Morbid obesity, Testing MD Remi unspecified obesity type Appointment (Primary Dx) 02/21/2017 Transcribe Access Vijay Juarez Morbid obesity with BMI Orders MD Remi of 40.0-44.9, adult (Primary Dx) after 12/30/2016 Family History Medical History Relation Name Comments [...] INFLUENZA VACCINE 03/11/2018 Implants Implanted Type Area Paper And Prints Restorer Device Expiration Model / Identifier Date Serial / Lot Stapler Surgcl Endopath [place] Surgical Anterior: W L GORE 2019 [id number] Flex 60 Endoscpc - [id number] Implants; Abdomen, / Implanted: 03/26/2017 (Quantity not Expanders; Middle / on file) Extenders; Quadrant/N [id number] Surgical on [id number] Wires Specific A Stapler Surgcl End[facility] [place] Surgical Anterior: W L GORE 2019 [id number] Flex 60 Endoscpc - [id number] Implants; Abdomen, / Implanted: 03/26/2017 (Quantity not Expanders; Middle / on file) Extenders; Quadrant/N [id number] Surgical on [id number] Wires Specific A Stapler Surgcl Endopath [place] Surgical Anterior: W L GORE 2019 [id number] Flex 60 Endoscpc - [id number] Implants; Abdomen, / Implanted: 03/26/2017 (Quantity not Expanders; Middle / on file) Extenders; Quadrant/N [id number] Surgical on [id number] Wires Specific A Stapler Surgcl End[facility] [place] Surgical Anterior: W L GORE 2019 [id number] Flex 60 Endoscpc - [id number] Implants; Abdomen, / Implanted: 03/26/2017 (Quantity not Expanders; Middle / on file) Extenders; Quadrant/N [id number] Surgical on [id number] Wires Specific A Stapler Surgcl End[facility] [place] Surgical Anterior: W L GORE 2019 [id number] Flex 60 Endoscpc - [id number] Implants; Abdomen, / Implanted: 03/26/2017 (Quantity not Expanders; Middle / on file) Extenders; Quadrant/N [id number] Surgical on [id number] Wires Specific A [facility] [place] N/A: [employer] 02/08/2020 [id number] / Implanted: Qty: 3 on 03/26/2017 by Abdomen ENDO-SURGERY / Vijay Juarez MD [id number] [facility] [place] N/A: [employer] 09/10/2019 [id number] / Implanted: Qty: 1 on 03/26/2017 by Angelo / Vijay Juarez MD [id number] [facility] [place] N/A: [employer] 01/09/2020 [id number] / Implanted: Qty: 1 on 03/26/2017 by Vijay Sanford MD [id number] Procedures Procedure Name Priority Date/Time Associated Diagnosis Comments DE AN ELECTIVE Routine 03/26/2017 ENDOTRACHEAL AIRWAY 1:11 [...] NO SPEC, LISSETTE HUERTA TO ASSIST after 12/30/2016 Results * FL Upper GI (03/27/2017 9:13 AM) Specimen Performing Laboratory [facility] [address] [place] [address] Narrative EXAMINATION: FL UPPER GI CLINICAL HISTORY: [...] 820.21 uGy*m2 Reference air Kerma: 33.10 mGy [id number] Procedure Note Hm Interface, Radiology Results Incoming [...] 820.21 uGy*m2 Reference air Kerma: 33.10 mGy [id number] * Estimated GFR (03/27/2017 5:35 AM) Only [...] and Americans. Specimen Performing Laboratory Plasma specimen [facility] DEPARTMENT OF PATHOLOGY AND GENOMIC MEDICINE [address] [place] [address]. [address] [place] [address] * CBC with platelet and differential (03/27/2017 [...] (promyelocytes, myelocytes, metamyelocytes) Specimen Performing Laboratory Blood [facility] DEPARTMENT OF PATHOLOGY AND GENOMIC MEDICINE [address] [place] [address]. [address] [place] [address] * Basic metabolic panel (03/27/2017 5:35 AM) [...] 10.6 mg/dL Specimen Performing Laboratory Plasma specimen [facility] DEPARTMENT OF PATHOLOGY AND GENOMIC MEDICINE [address] [place], [place] [address]y. [address] [place] [address] * XR Chest 2 Vw (03/12/2017 10:00 AM) Specimen Performing Laboratory [facility] [address] [place] [address] Narrative EXAMINATION:XR CHEST 2 VW CLINICAL HISTORY:E66.01 Morbid (severe) obesity due to excess calories, PREOP COMPARISON:None IMPRESSION: The lungs are clear. The mediastinal contours and cardiac silhouette are unremarkable. The bones are unremarkable. [id number] Procedure Note Interface, Radiology Results Incoming - 03/12/2017 10:39 AM CDT EXAMINATION: XR CHEST 2 VW CLINICAL HISTORY: E66.01 Morbid (severe) obesity due to excess calories, PREOP COMPARISON: None IMPRESSION: The lungs are clear. The mediastinal contours and cardiac silhouette are unremarkable. The bones are unremarkable. [id number] * Prothrombin time with INR (03/12/2017 9:10 AM) Component Value Ref Range Prothrombin time 12.7 12.0 - 15.0 sec INR 1.0 Comment: The International Normalized Ratio (INR) is a therapeutic monitoring tool for patients who are stable on oral anticoagulant therapy. An INR of 2.0-3.0 is suggested for deep vein thrombosis/pulmonary embolism. Specimen Performing Laboratory Blood [facility] DEPARTMENT OF PATHOLOGY AND GENOMIC MEDICINE [address] [place] [address]. [address] [place] [address] after 12/30/2016
--- OUTSIDE RECORDS SUMMARY | 2017-12-31 10:06 | XMS REPORT | Continuity of Care Document ---
Author Author [facility] Organization [facility] Address [address] [place] [address] Phone Unavailable Care Team Providers Care Platform Beater Name Role Phone CONCHA DE LA CRUZ MD PCP Insurance Providers Guarantor Bonifacio Camacho Address [address] [place] [address] Email PTDECLINED [employer] Policy Number [id number] Subscriber's Name Bonifacio Camacho Relationship 18 Self / Same As Patient Group Number [id number] Effective Date 17 Advance Directives Directive Response Recorded Date/Time Does the patient have an advance directive? No 11/04/15 5:09pm If yes, is advance directive on file with [facility]? No 11/04/15 5:09pm If not on file with [facility] will patient provide a copy? No 09/17/17 1:36pm Do you have a Directive to Physician? No 12/27/17 8:35pm Do you have a Medical Power of Manager Performance? No 12/27/17 8:35pm Do you have an out of hospital Do Not Resuscitate Order? No 12/27/17 8:35pm Do you have any special needs we should be aware of? No 12/27/17 8:35pm Do you have a support person here with you today? Yes 12/27/17 8:35pm Did patient receive Notice of Privacy Practices? Yes 12/27/17 8:35pm Did patient receive patient rights and responsibilities? Yes 12/27/17 8:35pm Problems Medical Problem Onset Date Status Confusion and disorientation 11/04/2015 Acute Dehydration 11/04/2015 Acute Medications Current Home Medications Medication Dose Units Route Directions Days Qty Instructions Start Date Famotidine (Pepcid) 20 Mg Tablet 20 Mg Oral Twice Daily Before Meals 30 Days 11/06/15 Fluoxetine Hcl 20 Mg Capsule 40 Mg Oral Daily 30 Cap Hydrocodone Bit/Acetaminophen ([place] 10-325 Tablet) 1 Each Tablet 10 Mg [...] Applicable Smoking Status Start Date Stop Date Former smoker Hospital Discharge Instructions No hospital discharge instruction information available. Plan of Care Discharge Date 12/27/17 9:48pm Disposition HOME, SELF-CARE Condition at Discharge Stable Instructions/Education Provided Dehydration - Adult Headache Forms Provided Work/School Excuse Prescriptions See Medication Section Referrals CONCHA DE LA CRUZ MD Order Date: [facility] Address: [address] [place] [id number] Additional Instructions/Education DRINK AT LEAST 80-96 OUNCES OF WATER PER DAY NO WORK FOR THE NEXT 2 DAYS TAKE MEDICATIONS PRESCRIBED FOLLOW-UP WITH PHYSICIAN THAT DID MYELOGRAM ON FRIDAY IF HEADACHE PERSISTS Functional Status No functional status information available. Allergies, Adverse Reactions, Alerts Allergen Type Severity Reaction Status Last Updated Succinylcholine Allergy Severe PROLONGED PARALYTIC EFFECT Active 12/27/17 Immunizations No immunization information available. Vital Signs Acute Vital Signs Vital Response Date/Time Temperature (Fahrenheit) 97.4 degrees F (97.6 - 99.5) 09/16/2017 8:58pm Pulse Pulse Rate (adult) 79 bpm (60 - 90) 09/16/2017 8:58pm Respiratory Rate 16 bpm (12 - 24) 09/17/2017 4:51pm Blood Pressure 135/86 mm Hg 09/17/2017 4:51pm Height 6 ft 5 in 12/27/2017 7:47pm Weight 230 lb 12/27/2017 7:47pm Body Mass Index 27.3 kg/m^2 12/27/2017 7:47pm Results Laboratory Results Test Name Result Units Flags Reference Collection Date/Time Result Date/ Time Comments White Blood Count 8.03 x10e3/uL 4.8-10.8 12/27/2017 7:50pm 12/27/2017 8 :01pm Red Blood Count 4.94 x10e6/uL 4.3-5.7 12/27/2017 7:50pm 12/27/2017 8: 01pm Hemoglobin 14.7 g/dL 14.0-18.0 12/27/2017 7:50pm 12/27/2017 8:01pm Hematocrit 44.7 % 38.2-49.6 12/27/2017 7:50pm 12/27/2017 8:01pm Mean Corpuscular Volume 90.5 fL 81-99 12/27/2017 7:50pm 12/27/2017 8: 01pm Mean Corpuscular Hemoglobin 29.8 pg 28-32 12/27/2017 7:50pm 12/27/2017 8:01pm Mean Corpuscular Hemoglobin Concent 32.9 g/dL 31-35 12/27/2017 7:50pm 12/27/2017 8:01pm Red Cell Distribution Width 14.0 % 11.7-14.4 12/27/2017 7:50pm 2017 8:01pm Platelet Count 234 x10e3/uL 140-360 12/27/2017 7:50pm 12/27/2017 8: 01pm Neutrophils (%) (Auto) 73.9 % 38.7-80.0 12/27/2017 7:50pm 12/27/2017 8: 01pm Lymphocytes (%) (Auto) 15.4 % L 18.0-39.1 12/27/2017 7:50pm 12/27/2017 8 :01pm Monocytes (%) (Auto) 9.0 % 4.4-11.3 12/27/2017 7:50pm 12/27/2017 8: 01pm Eosinophils (%) (Auto) 1.0 % 0.0-6.0 12/27/2017 7:50pm 12/27/2017 8: 01pm Basophils (%) (Auto) 0.2 % 0.0-1.0 12/27/2017 7:50pm 12/27/2017 8:01pm IM GRANULOCYTES % 0.5 % 0.0-1.0 12/27/2017 7:50pm 12/27/2017 8:01pm Neutrophils # (Auto) 5.9 2.1-6.9 12/27/2017 7:50pm 12/27/2017 8:01pm Lymphocytes # (Auto) 1.2 1.0-3.2 12/27/2017 7:50pm 12/27/2017 8:01pm Monocytes # (Auto) 0.7 0.2-0.8 12/27/2017 7:50pm 12/27/2017 8:01pm Eosinophils # (Auto) 0.1 0.0-0.4 12/27/2017 7:50pm 12/27/2017 8:01pm Basophils # (Auto) 0.0 0.0-0.1 12/27/2017 7:50pm 12/27/2017 8:01pm Absolute Immature Granulocyte (auto 0.04 x10e3/uL 0-0.1 12/27/2017 7: 50pm 12/27/2017 8:01pm Urine Color YELLOW YELLOW 12/27/2017 9:10pm 12/27/2017 9:15pm Urine Clarity SL CLOUDY H CLEAR 12/27/2017 9:10pm 12/27/2017 9:15pm Urine Specific [place] 1.025 1.010-1.025 12/27/2017 9:10pm 2017 9:15pm Urine pH 6 5 - 7 12/27/2017 9:10pm 12/27/2017 9:15pm Urine Leukocyte Esterase NEGATIVE NEGATIVE 12/27/2017 9:10pm 2017 9:15pm Urine Nitrite NEGATIVE NEGATIVE 12/27/2017 9:10pm 12/27/2017 9:15pm Urine Protein NEGATIVE NEGATIVE 12/27/2017 9:10pm 12/27/2017 9:15pm Urine Glucose (UA) NEGATIVE NEGATIVE 12/27/2017 9:10pm 12/27/2017 9: 15pm Urine Ketones 1+ H NEGATIVE 12/27/2017 9:10pm 12/27/2017 9:15pm Urine Urobilinogen 0.2 mg/dL 0.2 - 1 12/27/2017 9:10pm 12/27/2017 9: 15pm Urine Bilirubin NEGATIVE NEGATIVE 12/27/2017 9:10pm 12/27/2017 9: 15pm Urine Blood TRACE H NEGATIVE 12/27/2017 9:10pm 12/27/2017 9:15pm Urine WBC NONE /HPF 0-5 12/27/2017 9:10pm 12/27/2017 9:24pm Urine RBC 0-5 /HPF 0-5 12/27/2017 9:10pm 12/27/2017 9:24pm Urine Bacteria NONE /HPF NONE 12/27/2017 9:10pm 12/27/2017 9:24pm Urine Epithelial Cells FEW /LPF NONE 12/27/2017 9:10pm 12/27/2017 9: 24pm Urine Mucus FEW H RARE 12/27/2017 9:10pm 12/27/2017 9:24pm Sodium Level 141 mmol/L 136-145 12/27/2017 7:50pm 12/27/2017 8:20pm Potassium Level 3.9 mmol/L 3.5-5.1 12/27/2017 7:50pm 12/27/2017 8:20pm Chloride Level 107 mmol/L 98-107 12/27/2017 7:50pm 12/27/2017 8:20pm Carbon Dioxide Level 23 mmol/L 22-29 12/27/2017 7:50pm 12/27/2017 8: 20pm Anion Gap 14.9 mmol/L 8-16 12/27/2017 7:50pm 12/27/2017 8:20pm Blood Urea Nitrogen 9 mg/dL 7-12/27/2017 7:50pm 12/27/2017 8:20pm Creatinine 0.71 mg/dL L 0.72-1.25 12/27/2017 7:50pm 12/27/2017 8:20pm BUN/Creatinine Ratio 13 6-25 12/27/2017 7:50pm 12/27/2017 8:20pm Estimat Glomerular Filtration Rate > 60 ML/MIN 60- 12/27/2017 7:50pm 8:20pm Ranges were taken from the National Kidney Disease Education Program and the National Kidney Foundation literature. Reference ranges: 60 or greater: Normal 16-59 (for 3 consecutive months): Chronic kidney disease 15 or less: Kidney failure Glucose Level 98 mg/dL 74-118 12/27/2017 7:50pm 12/27/2017 8:20pm Calcium Level 11.5 mg/dL H 8.4-10.2 12/27/2017 7:50pm 12/27/2017 8:20pm Total Bilirubin 0.6 mg/dL 0.2-1.2 12/27/2017 7:50pm 12/27/2017 8:20pm Aspartate Amino Transf (AST/SGOT) 10 IU/L 5-34 12/27/2017 7:50pm 2017 8:20pm Alanine Aminotransferase (ALT/SGPT) 10 IU/L 0-55 12/27/2017 7:50pm 8:20pm Total Protein 7.2 g/dL 6.5-8.1 12/27/2017 7:50pm 12/27/2017 8:20pm Albumin 3.8 g/dL 3.5-5.0 12/27/2017 7:50pm 12/27/2017 8:20pm Globulin 3.4 g/dL 2.3-3.5 12/27/2017 7:50pm 12/27/2017 8:20pm Albumin/Globulin Ratio 1.1 0.8-2.0 12/27/2017 7:50pm 12/27/2017 8: 20pm Alkaline Phosphatase 99 IU/L 40-150 12/27/2017 7:50pm 12/27/2017 8: 20pm Creatine Kinase 25 IU/L L 30-200 12/27/2017 7:50pm 12/27/2017 8:20pm Creatine Kinase MB 0.50 ng/mL 0-5.0 12/27/2017 7:50pm 12/27/2017 8: 25pm Troponin I < 0.001 ng/mL 0-0.300 12/27/2017 7:50pm 12/27/2017 8:25pm Procedures Procedure Status Date Provider(s) Magnetic resonance imaging of lumbar spine without contrast Active 09/17/17 CECILIA SARGENT [employer]UG BOAT CAPTAIN Encounters Encounter Location Arrival/Admit Date Discharge/Depart Date Attending Provider Departed Emergency Room [facility] 12/27/17 7:41pm 9:48pm AJIT SPENCER MD Departed Emergency Room [facility] 09/17/17 12:01pm 09/17 4:55pm FLORA IBANEZ MD Departed Emergency Room [facility] 09/16/17 6:42pm 9:02pm SELENA TANG MD
== END | disposition home or self-care (01) ==
LOC: OR 10:04
PROVIDERS: ATTEND Anesthesiology
DX: G97.1 Other reaction to spinal and lumbar puncture (principal); M54.5 Low back pain; G89.29 Other chronic pain

== ENCOUNTER → 2018-03-09 | Outpatient (CLI) | payer BC ==
[~2018-03-09] MED LIST changes: +DICLOFENAC SODI75 MG PO; +DICYCLOMINE HCL20 MG PO; +FLOMAX0.4 MG PO; +FLUOXETINE HCL40 MG PO; +LEVAQUIN500 MG PO; +TYLENOL WITH C1 EACH PO; +VITAMIN D250000 UNIT PO
--- NOTE | 2018-03-09 17:42 | Diagnostic Imaging Report ---
ADDENDUM #[address] Pérez at 5:50 PM, on 03/09/2018. Signed by: Dr. Daryn Merchant MD on 03/09/2018 5:52 PM ORIGINAL REPORT EXAM: Complete Abdominal Ultrasound INDICATION: \S\UPPER ABD PAIN/SEVERE RUQ PAIN COMPARISON: CT dated 10/09/2012 TECHNIQUE: Transverse and longitudinal images of the upper abdomen were obtained. FINDINGS: Liver: Size: 16.8 cm in the right midclavicular line, normal Appearance: Normal echogenicity, smooth contour Mass: No focal masses Spleen: Size: 11.7 cm in length, normal Echogenicity: Normal Mass: No focal masses Gallbladder: Stones/Sludge: Multiple shadowing gallstones and sludge. Wall: 0.2 cm Appearance: No pericholecystic fluid or hydrops. Sonographic Salamanca's Sign: Negative Bile Ducts: Intrahepatic Ducts: No dilatation Extrahepatic Ducts: Common bile duct measures 0.3 cm, no dilatation Pancreas: Visualized portions of the pancreatic head, neck and proximal body are normal. Right Kidney: Size: 11.5 cm Echogenicity: Normal Parenchymal thickness: Normal Collecting System: No hydronephrosis Stone: None Cyst/Mass: None Left Kidney: Size: 12 cm Echogenicity: Normal Parenchymal thickness: Normal Collecting System: No hydronephrosis Stone: None Cyst/Mass: None Vessels: Aorta: Not well visualized. Inferior Vena Cava: Visualized portions are normal Main Portal Vein: 1 cm, normal size with hepatopetal flow. Free Fluid: No ascites or pleural effusion IMPRESSION: Cholelithiasis without evidence of cholecystitis. Signed by: Dr. Daryn Merchant MD on 03/09/2018 5:39 PM
== END ==
LOC: US 15:57
PROVIDERS: ATTEND Nurse Practitioner Acute Care
DX: R10.11 Right upper quadrant pain (principal)
CPT/HCPCS: 76700

== ENCOUNTER → 2018-03-11 | Day surgery (SDC) | payer BC ==
[2018-03-10 16:25] LABS: BASOPHILS % 0.2 % (0.0-1.0); EOSINOPHILS # (AUTO) 0.2 (0.0-0.4); EOSINOPHILS % 2.9 % (0.0-6.0); HEMATOCRIT 50.3 % (38.2-49.6); HEMOGLOBIN 16.1 g/dL (14.0-18.0); LYMPHOCYTES # (AUTO) 1.3 (1.0-3.2); LYMPHOCYTES % 15.9 % (18.0-39.1); MEAN CORPUSCULAR HEMOGLOBIN 29.8 pg (28-32); MONOCYTES # (AUTO) 0.6 (0.2-0.8); MONOCYTES % 6.6 % (4.4-11.3); NEUTROPHILS # (AUTO) 6.2 (2.1-6.9); PLATELET COUNT 222 x10e3/uL (140-360); RED BLOOD COUNT 5.41 x10e6/uL (4.3-5.7)
[2018-03-10 16:40] LABS: ALANINE AMINOTRANSFERASE 11 IU/L (0-55); ALBUMIN 4.1 g/dL (3.5-5.0); ALBUMIN/GLOBULIN RATIO 1.1 (0.8-2.0); ALKALINE PHOSPHATASE 118 IU/L (40-150); ANION GAP 13.3 mmol/L (8-16); BLOOD UREA NITROGEN 9 mg/dL (7-26); BUN/CREATININE RATIO 11 (6-25); CALCIUM 11.6 mg/dL (8.4-10.2); CARBON DIOXIDE 28 mmol/L (22-29); CHLORIDE 105 mmol/L (98-107); CREATININE, SERUM 0.79 mg/dL (0.72-1.25); EST GLOMERULAR FILTRATION RATE > 60 ML/MIN (60-); GLUCOSE 90 mg/dL (74-118); POTASSIUM 4.3 mmol/L (3.5-5.1); SODIUM 142 mmol/L (136-145)
[~2018-03-11] MED LIST changes: +BUPIVACAINE HCL 0.5% INJ 30 ML VIAL INJ ONE; +CEFAZOLIN SOD 2 GM/D5W 50ML 50 ML IV ONE; +DEXAMETHASONE SOD PHOS INJ 4 MG/ML VIAL ONE; +FENTANYL CITRATE/PF 100MCG/2 ML INJ ONE; +GLYCOPYRROLATE INJ 1MG/ 5 ML SYR ONE; +LIDOCAINE HCL 2% LOCAL INJ 5 ML SDV VIAL INJ ONE; +MIDAZOLAM HCL 2 MG/2 ML VIAL ONE; +NEOSTIGMINE 1 MG/ML 10ML VIAL ONE; +ONDANSETRON HCL INJ 2 MG/ML VIAL ONE; +PROPOFOL IV EMULSION 10 MG/ML 20 ML VIAL ONE; +ROCURONIUM BROMIDE 10 MG/ML 5ML VIAL ONE; +SEVOFLURANE INHAL SOLN 250 ML PEN BTL ONE
--- NOTE | 2018-03-11 12:58 | Operative Report ---
DATE OF PROCEDURE: March 11, 2018 PREOPERATIVE DIAGNOSIS: Acute and chronic cholecystitis, cholelithiasis. POSTOPERATIVE DIAGNOSIS: Acute and chronic cholecystitis, cholelithiasis. PROCEDURES PERFORMED 1. Diagnostic laparoscopy. 2. Laparoscopic cholecystectomy. TALEND ETL DEVELOPER: None. ANESTHESIA: General. INDICATIONS AND FINDINGS: Patient is a 37-year-old male, presented with complaints of severe right upper quadrant abdominal pain for several days. At surgery, patient was found to have gallbladder with changes of cholesterolosis, it was distended, containing multiple small stones. Cystic duct was about 3 mm in diameter. Common bile duct was about 6 mm in diameter. Liver and lower abdomen appeared normal. Stomach was not well seen. TECHNIQUE: After adequate general endotracheal anesthesia, patient in supine position, the abdomen was prepped and draped in sterile fashion with Tristin solution. Skin in the umbilicus was infiltrated with 0.5% Marcaine. Incision was made in the umbilicus. Abdominal wall was elevated and Veress needle was introduced. Pneumoperitoneum was then created. A 10 mm trocar and cannula was then passed through the umbilical wound. Laparoscopic camera was introduced. Initial laparoscopy revealed liver and lower abdomen appeared normal. Stomach was not well seen. A 10 mm trocar and cannula was placed in epigastrium and two 5 mm trocars and cannulas placed in right upper quadrant. These were placed under direct vision. Fundus of the gallbladder was grasped and retracted superiorly. There were adhesions over the neck and fundus of the gallbladder involving omentum. These were lysed staying close to the gallbladder. Neck of the gallbladder was grasped, retracted laterally. Peritoneum over the neck of the gallbladder was incised. Gallbladder and cystic duct junction was dissected free. Cystic artery was also dissected free. Cystic artery was divided between Hemoclips close to the gallbladder. Cystic duct was also divided between Hemoclips with 3 clips being left on the common bile duct side. Gallbladder was dissected free from the liver using scissors and electrocautery. Once was entirely free, it was placed into an Endo pouch and brought through the epigastric cannula. There were multiple tiny stones present. Gallbladder bed was inspected for hemostasis which was seen to be adequate. It was irrigated with saline. All fluid aspirated, inspected for hemostasis which was seen to be adequate. Instruments and cannulas were then removed. Pneumoperitoneum was evacuated. Wounds were then closed. Fascia in the umbilical and epigastric wound closed with 0 Vicryl. Skin to all wounds closed with francisco. Sterile dressings applied to each wound. Patient tolerated procedure well. Estimated blood loss was 10 mL. There were no complications. All counts were correct. Patient was taken to the recovery room in satisfactory condition. Job#: [id number] DG cc:CONCHA DE LA CRUZ MD
== END | disposition home or self-care (01) ==
LOC: OR 08:53
PROVIDERS: ATTEND Surgery
DX: K80.12 Calculus of gallbladder with acute and chronic cholecystitis without obstruction (principal); K82.8 Other specified diseases of gallbladder; F32.9 Major depressive disorder, single episode, unspecified; Z01.812 Encounter for preprocedural laboratory examination
CPT/HCPCS: 36415; 47562; 80053; 83970; 85025; 88304; J1100; J2001; J2250; J2405; J2710; J3490

== ENCOUNTER 2018-04-30 10:36 | Emergency (ER) | payer BC ==
[~2018-04-30] VITALS: Ht 193 cm; Wt 102.1 kg
[~2018-04-30 10:36] MED LIST changes: -BUPIVACAINE HCL 0.5% INJ 30 ML VIAL INJ ONE; -CEFAZOLIN SOD 2 GM/D5W 50ML 50 ML IV ONE; -DEXAMETHASONE SOD PHOS INJ 4 MG/ML VIAL ONE; -FENTANYL CITRATE/PF 100MCG/2 ML INJ ONE; -GLYCOPYRROLATE INJ 1MG/ 5 ML SYR ONE; -LIDOCAINE HCL 2% LOCAL INJ 5 ML SDV VIAL INJ ONE; -MIDAZOLAM HCL 2 MG/2 ML VIAL ONE; -NEOSTIGMINE 1 MG/ML 10ML VIAL ONE; -ONDANSETRON HCL INJ 2 MG/ML VIAL ONE; -PROPOFOL IV EMULSION 10 MG/ML 20 ML VIAL ONE; -ROCURONIUM BROMIDE 10 MG/ML 5ML VIAL ONE; -SEVOFLURANE INHAL SOLN 250 ML PEN BTL ONE
[2018-04-30] MEDS ORDERED: GADOBENATE DIMEGLUMINE 1 ML IV ONE (11:12)
[2018-04-30] MEDS ORDERED: HYDROMORPHONE 1MG/1ML INJ IV STA ×2 (11:31→13:24)
[2018-04-30] MEDS ORDERED: ONDANSETRON HCL INJ 2 MG/ML VIAL IV STA (11:31)
[2018-04-30 11:40] LABS: BASOPHILS % 0.5 % (0.0-1.0); EOSINOPHILS # (AUTO) 0.2 (0.0-0.4); EOSINOPHILS % 2.4 % (0.0-6.0); HEMATOCRIT 44.4 % (38.2-49.6); HEMOGLOBIN 14.1 g/dL (14.0-18.0); LYMPHOCYTES # (AUTO) 1.1 (1.0-3.2); LYMPHOCYTES % 14.2 % (18.0-39.1); MEAN CORPUSCULAR HEMOGLOBIN 29.2 pg (28-32); MEAN CORPUSCULAR HGB CONC 31.8 g/dL (31-35); MEAN CORPUSCULAR VOLUME 91.9 fL (81-99); MONOCYTES # (AUTO) 0.6 (0.2-0.8); MONOCYTES % 8.3 % (4.4-11.3); NEUTROPHILS # (AUTO) 5.6 (2.1-6.9); NEUTROPHILS % 74.1 % (38.7-80.0); PLATELET COUNT 229 x10e3/uL (140-360); RED BLOOD COUNT 4.83 x10e6/uL (4.3-5.7); RED CELL DISTRIBUTION WIDTH 13.7 % (11.7-14.4)
[2018-04-30 12:05] LABS: ALANINE AMINOTRANSFERASE 12 IU/L (0-55); ALBUMIN 3.7 g/dL (3.5-5.0); ALBUMIN/GLOBULIN RATIO 1.1 (0.8-2.0); ALKALINE PHOSPHATASE 111 IU/L (40-150); AMYLASE 46 U/L (25-125); ANION GAP 13.8 mmol/L (8-16); BLOOD UREA NITROGEN 8 mg/dL (7-26); BUN/CREATININE RATIO 11 (6-25); CALCIUM 11.1 mg/dL (8.4-10.2); CARBON DIOXIDE 25 mmol/L (22-29); CHLORIDE 106 mmol/L (98-107); CREATININE, SERUM 0.72 mg/dL (0.72-1.25); EST GLOMERULAR FILTRATION RATE > 60 ML/MIN (60-); GLUCOSE 94 mg/dL (74-118); LIPASE 19 U/L (8-78); POTASSIUM 3.8 mmol/L (3.5-5.1); SODIUM 141 mmol/L (136-145)
[2018-04-30 13:34] LABS: CLARITY,URINE SL CLOUDY (CLEAR); COLOR,URINE YELLOW (YELLOW)
[2018-04-30 13:35] LABS: BILIRUBIN,URINE NEGATIVE (NEGATIVE); KETONES,URINE NEGATIVE (NEGATIVE); LEUKOCYTE ESTERASE ,URINE NEGATIVE (NEGATIVE); NITRITE,URINE NEGATIVE (NEGATIVE); PROTEIN,URINE DIPSTICK NEGATIVE (NEGATIVE); URINE UROBILINOGEN 0.2 mg/dL (0.2 - 1)
[2018-04-30] MEDS ORDERED: HYDROMORPHONE 2MG/ML 2 MG/ML ML IV NR (13:45)
--- NOTE | 2018-04-30 13:45 | Diagnostic Imaging Report ---
Exam: Lumbar spine MRI without with IV contrast History: Perirenal paresthesias Comparison studies: Lumbar spine MRI 09/17/2017. Technique: Sagittal and axial T2 , sagittal and axial T1, axial STIR, axial oblique spin density oblique, coronal T2. Postcontrast sagittal and axial T1 FS. Intravenous contrast: None Findings: Number of lumbar vertebral bodies: 5. Alignment: Normal lordosis. No scoliosis. Soft tissues: No T2 hyperintense inflammatory changes. Paraspinal muscles: No signal abnormalities. Well-preserved. No atrophic changes Lower thoracic cord: Normal in signal and morphology. The tip of the conus is at L1. Cauda equina: No masses. No arachnoiditis. No enhancing under malleus. Vertebrae: No compression fractures or infection. Incidental small T1 hyperintense L3 and L4 vertebral body hemangiomas. Degenerative changes: L1-L2: No abnormalities L2-L3: No abnormalities L3-L4: Mildly degenerated disc with loss of T2 disc signal, small central annular fissure and disc bulge which indents the thecal sac but does not result in canal stenosis. No significant foraminal stenosis. L4-L5: Mildly degenerated disc with loss of T2 disc signal, small central annular fissure and disc bulge which indents the thecal sac but does not result in significant canal stenosis. Mild bilateral facet arthrosis. No significant foraminal stenosis. Reactive T2 hyperintense changes at the left facet related to synovitis. L5-S1: Mildly degenerated disc with loss of T2/STIR disc signal. Previous left foraminal annular fissure is not identified on the current exam. Symmetric disc bulge and facet arthrosis (moderate left and mild right) moderate left and mild right foraminal stenosis. No significant canal stenosis. IMPRESSION: 1. No new or acute abnormalities. No canal stenosis. 2. Mildly degenerated disks from L3 to S1 with small annular fissures at L3-L4 and at L4-L5. 3. Unchanged moderate left and mild right L5-S1 foraminal stenosis. 4. 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 Signed by: Dr. Peter Jimenez M.D. on 04/30/2018 1:41 PM
[2018-04-30 13:52] LABS: AMORPHOUS SEDIMENT,URINE RARE (FEW); BACTERIA,URINE RARE /HPF; EPITHELIAL CELLS,URINE FEW /LPF; RBC,URINE 21-50 /HPF (0-5)
[2018-04-30 14:31] VITALS: BP 114/73
== END 2018-04-30 14:29 | disposition home or self-care (01) ==
LOC: ER 10:36
DX: M54.5 Low back pain (principal); F44.6 Conversion disorder with sensory symptom or deficit; G93.5 Compression of brain; F32.9 Major depressive disorder, single episode, unspecified
CPT/HCPCS: 36415; 72158; 80053; 81001; 82150; 83605; 83690; 85025; 87040; 99284; J1170 ×2; J2405

== ENCOUNTER → 2018-11-02 | Day surgery (SDC) | payer BC ==
[~2018-11-02] MED LIST changes: +CYCLOBENZAPRINE5 MG; +CYMBALTA PO; +FENTANYL CITRATE/PF 100MCG/2 ML INJ ONE; +GLUCAGON FOR INJ 1 MG VIAL ONE; +HYOSCYAMINE SULFATE 0.5 MG/ML INJ ONE; +LYRICA75 MG PO; +MIDAZOLAM HCL 2 MG/2 ML VIAL ONE; +PROPOFOL IV EMULSION 10 MG/ML 50 ML VIAL ONE
--- OUTSIDE RECORDS SUMMARY | 2018-11-02 06:22 | XMS REPORT ---
Author Author [facility] Address Unknown Phone Unavailable Care Team Providers Care Cross Tie Cutter Name Role Phone Giselle MUÑIZ Unavailable Unavailable SUNG SLOAN Unavailable Unavailable Janak IBANEZ Unavailable Unavailable Problems This patient has no known problems. Allergies, Adverse Reactions, Alerts This patient has no known allergies or adverse reactions. Medications This patient has no known medications. Results Test Description Test Time Test Comments Text Results Atomic Results Result Comments MRI SPINE LUMBAR WOW 2018-04-30 13:28:00 [place] [address] Patient Name: VOLODYMYR LOPEZ MR #: [id number] : 1980 Age/Sex: 37/M Req #: [id number] Adm Physician: Ordered by: CECILIA SARGENT COMMUNICATIONS EQUIPMENT INSTALLER Report #: [id number] Location: ER Room/Bed: Procedure: [id number] MRI/MRI SPINE LUMBAR WOW Exam Date: Exam Time: REPORT STATUS: Signed Exam: Lumbar spine MRI without with IV contrast History: Perirenal paresthesias Comparison studies: Lumbar spine MRI 09/17/2017. Technique: Sagittal and axial T2 , sagittal and axial T1, axial STIR, axial oblique spin density oblique, coronal T2. Postcontrast sagittal and axial T1 FS. Intravenous contrast: None Findings: Number of lumbar vertebral bodies: 5. Alignment: Normal lordosis. No scoliosis. Soft tissues: No T2 hyperintense inflammatory changes. Paraspinal muscles: No signal abnormalities. Well-preserved. No atrophic changes Lower thoracic cord: Normal in signal and morphology. The tip of the conus is at L1. Cauda equina: No masses. No arachnoiditis. No enhancing under malleus. Vertebrae: No compression fractures or infection. Incidental small T1 hyperintense L3 and L4 vertebral body hemangiomas. Degenerative changes: L1-L2: No abnormalities L2-L3: No abnormalities L3-L4: Mildly degenerated disc with loss of T2 disc signal, small central annular fissure and disc bulge which indents the thecal sac but does not result in canal stenosis. No significant foraminal stenosis. L4-L5: Mildly degenerated disc with loss of T2 disc signal, small central annular fissure and disc bulge which indents the thecal sac but does not result in significant canal stenosis. Mild bilateral facet arthrosis. No significant foraminal stenosis. Reactive T2 hyperintense changes at the left facet related to synovitis. L5-S1: Mildly degenerated disc with loss of T2/STIR disc signal. Previous left foraminal annular fissure is not identified on the current exam. Symmetric disc bulge and facet arthrosis (moderate left and mild right) moderate left and mild right foraminal stenosis. No significant canal stenosis. IMPRESSION: 1. No new or acute abnormalities. No canal stenosis. 2. Mildly degenerated disks from L3 to S1 with small annular fissures at L3-L4 and at L4-L5. 3. Unchanged moderate left and mild right L5-S1 foraminal stenosis. 4. 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 Signed by: Dr. Arnold Jimenez M.D. on 04/30/2018 1:41 PM Dictated By: ARNOLD JIMENEZ MD [id number] Transcribed By: LEAH on 04/30/18 1341 COPY TO: CECILIA SARGENT NP US ABDOMEN COMPLETE 2018-03-09 17:19:00 [place] [address] Patient Name: VOLODYMYR LOPEZ MR #: [id number] : 1980 Age/Sex: 37/M Req #: [id number] Adm Physician: Ordered by: SUNG SLOAN NP Report #: [id number] Location: Room/Bed: Procedure: [id number] US/US ABDOMEN COMPLETE Exam Date: 03/09/18 Exam Time: 1631 REPORT STATUS: Signed ADDENDUM #[address] Pérez at 5:50 PM, on 03/09/2018. Signed by: Dr. Daryn Moran MD on 03/09/2018 5:52 PM ORIGINAL REPORT EXAM: Complete Abdominal Ultrasound INDICATION: COMPARISON: CT dated 10/09/2012 TECHNIQUE: Transverse and longitudinal images of the upper abdomen were obtained. FINDINGS: Liver: Size: 16.8 cm in the right midclavicular line, normal Appearance: Normal echogenicity, smooth contour Mass: No focal masses Spleen: Size: 11.7 cm in length, normal Echogenicity: Normal Mass: No focal masses Gallbladder: Stones/Sludge: Multiple shadowing gallstones and sludge. Wall: 0.2 cm Appearance: No pericholecystic fluid or hydrops. Sonographic Salamanca's Sign: Negative Bile Ducts: Intrahepatic Ducts: No dilatation Extrahepatic Ducts: Common bile duct measures 0.3 cm, no dilatation Pancreas: Visualized portions of the pancreatic head, neck and proximal body are normal. Right Kidney: Size: 11.5 cm Echogenicity: Normal Parenchymal thickness: Normal Collecting System: No hydronephrosis Stone: None Cyst/Mass: None Left Kidney: Size: 12 cm Echogenicity: Normal Parenchymal thickness: Normal Collecting System: No hydronephrosis Stone: None Cyst/Mass: None Vessels: Aorta: Not well visualized. Inferior Vena Cava: Visualized portions are normal Main Portal Vein: 1 cm, normal size with hepatopetal flow. Free Fluid: No ascites or pleural effusion IMPRESSION: Cholelithiasis without evidence of cholecystitis. Signed by: Dr. Daryn Moran MD on 03/09/2018 5:39 PM Dictated By: DARYN MORAN MD [id number] Transcribed By: LEAH on 03/09/18 [id number] COPY TO: SUNG SLOAN COMMUNICATIONS EQUIPMENT INSTALLER MRI SPINE LUMBAR WO [place] [address] Patient Name: VOLODYMYR LOPEZ MR #: [id number] : 1980 Age/Sex: 36/M Req #: [id number] Adm Physician: Ordered by: CECILIA SARGENT COMMUNICATIONS EQUIPMENT INSTALLER Report #: [id number] Location: ER Room/Bed: Procedure: [id number] MRI/MRI SPINE LUMBAR WO Exam Date: Exam Time: REPORT STATUS: Signed EXAMINATION: MRI of the lumbar spine without contrast HISTORY: Severe low back pain radiating to the left, worsening for the last 3 weeks COMPARISON: None available TECHNIQUE: Sagittal T1, T2, STIR; axial T2 and [...]
--- OUTSIDE RECORDS SUMMARY | 2018-11-02 06:22 | XMS REPORT | Clinical Summary ---
Author Author [facility] Organization [facility] Address Unknown Phone Unavailable Care Team Providers Care Spectroscopist Name Role Phone Franc Yoder MD PCP Allergies Comments Active Allergy Reactions Severity Noted Date "pseudocholinesterase deficiency" Succinylcholine Other (See 03/26/2017 Comments) Medications End Date Status Medication Sig Dispensed Refills Start Date Active FLUoxetine (PROzac) 40 MG Take 40 mg by 0 capsule mouth daily. Active Problems Problem Noted Date Morbid obesity with BMI of 40.0-44.9, adult 03/26/2017 Diabetes mellitus 03/26/2017 Family History Medical History Relation Name Comments Diabetes Father Heart disease Mother Hyperlipidemia Mother Relation Name Status Comments Father Alive Mother Alive Social History Date Tobacco Use Types Packs/Day Years Used Never Smoker Smokeless Tobacco: Chew Current User Tobacco Cessation: Counseling Given: Yes Comments: chew tobaccos all day and surgeon aware Alcohol Use Drinks/Week oz/Week Comments Yes ocassionaly Sex Assigned at Date Recorded Not on file Industry Job Start Date Occupation Not on file Not on file Not on file Travel End Travel History Travel Start No recent travel history available. Last Filed Vital Signs Not on file Plan of Treatment Health Maintenance Due Date Last Done Comments DIABETIC RETINAL EYE EXAM 1981 DIABETIC FOOT EXAM 10/31/1991 URINE MICROALBUMIN 10/31/1991 INFLUENZA VACCINE 03/11/2018 Implants Device Identifier Shelf Expiration Date Model / Serial / Lot Implanted Type Area Manufactur er 01/09/2020 [id number] / / [id number] Stapler Surgcl Endopath [place] Surgical Anterior: W L GORE Flex 60 Endoscpc - [id number] Implants; Abdomen, Middle Implanted: 03/26/2017 (Quantity not Expanders; Quadrant/Non on file) Extenders; Specific Surgical Wires 01/09/2020 [id number] / / [id number] Stapler Surgcl Endopath [place] Surgical Anterior: W L GORE Flex 60 Endoscpc - [id number] Implants; Abdomen, Middle Implanted: 03/26/2017 (Quantity not Expanders; Quadrant/Non on file) Extenders; Specific Surgical Wires 01/09/2020 [id number] / / [id number] Stapler Surgcl Endopath [place] Surgical Anterior: W L GORE Flex 60 Endoscpc - [id number] Implants; Abdomen, Middle Implanted: 03/26/2017 (Quantity not Expanders; Quadrant/Non on file) Extenders; Specific Surgical Wires 01/09/2020 [id number] / / [id number] Stapler Surgcl Endopath [place] Surgical Anterior: W L GORE Flex 60 Endoscpc - [id number] Implants; Abdomen, Middle Implanted: 03/26/2017 (Quantity not Expanders; Quadrant/Non on file) Extenders; Specific Surgical Wires 01/09/2020 [id number] / / [id number] Stapler Surgcl Endopath [place] Surgical Anterior: W L GORE Flex 60 Endoscpc - [id number] Implants; Abdomen, Middle Implanted: 03/26/2017 (Quantity not Expanders; Quadrant/Non on file) Extenders; Specific Surgical Wires 02/08/2020 [id number] / / [id number] [facility] [place] N/A: Abdomen ETHICON Implanted: Qty: 3 on 03/26/2017 by ENDO-SURGE Vijay Juarez MD RY 09/10/2019 [id number] / / [id number] [facility] [place] N/A: Abdomen ETHICON Implanted: Qty: 1 on 03/26/2017 by Vijay Merrill MD 01/09/2020 [id number] / / [id number] [facility]opath [place] N/A: Abdomen ETHICON Implanted: Qty: 1 on 03/26/2017 by Vijay Merrill MD Results Not on fileafter 11/01/2017 Advance Directives Patient has advance care planning documents, and code status on file. For more i nformation, please contact: Lucas Canchola [address] [place] [address] Date Inactivated Comments Code Status Date Activated 03/27/2017 10:06 PM Full Code 03/26/2017 4:16 PM Code Status decision reached by: Patient
--- NOTE | 2018-11-02 07:05 | NUR ---
SPIRITUAL CARE - Pre-Surgery Assessment: Pt in bed. Pt's mom at bedside. Pt reported supportive attention from family and friends. Intervention: I provided pastoral presence, hospitality, and sympathetic listening. I acquainted pt with availability of video producer while hospitalized. Outcome: Pt expressed appreciation for visit. No need for follow up indicated at this time. [facility] Spiritual Care Department O: [phone] Pager: [phone] ([phone] number calling from)
[2018-11-02 10:20] VITALS: BP 139/87
--- NOTE | 2018-11-02 16:03 | Operative Report ---
DATE OF PROCEDURE: 11/02/2018 SURGEON: Benson Kent MD PROCEDURE: EGD with biopsies and colonoscopy with polypectomy and biopsies. INDICATIONS FOR EGD: Dyspepsia. INDICATIONS FOR COLONOSCOPY: History of bright red blood per rectum. MEDICATIONS: The patient was done under MAC. Please see anesthesiologist's note. PROCEDURE IN DETAIL: With the patient in left lateral decubitus position, a flexible fiberoptic Olympus gastroscope was introduced into the esophagus under direct visualization without any difficulty. There was some patchy erythema noted in distal esophagus. The scope was then advanced with ease into the stomach and the patient is status post gastric sleeve. The mucosa overlying the antrum and the body revealed some diffuse erythema and moderate edema, and biopsies were obtained and sent to stain for H. pylori. Pylorus appeared to be of normal contour and shape, was intubated with ease, and the scope was advanced all the way to the second portion of the duodenum. The scope was then withdrawn slowly. Mucosa overlying the proximal second portion and duodenal bulb appeared to be within normal limits. Biopsies were obtained to rule out sprue. The scope was then withdrawn back into the stomach and retroflexed and postoperative changes were noted. The scope was then straightened out. It was subsequently withdrawn. The patient tolerated the procedure well. IMPRESSION: 1. Distal esophagitis, mild. 2. Status post gastric sleeve. 3. Gastritis, biopsied. Biopsies sent to stain for H. pylori. 4. Rule out sprue. PLAN: Follow up histology. Initiate Protonix 40 mg one p.o. q.a.m. a.c. The patient was then turned around. After adequate lubrication of the anal canal, flexible fiberoptic Olympus colonoscope was inserted into the rectum with ease and advanced all the way to the cecum. Mucosa overlying the cecum appeared to be within normal limits. There was a sessile polyp noted in the proximal ascending colon and that was removed per snare electrocautery and polypectomy site was hemoclipped. The rest of the ascending, transverse, descending, sigmoid, and rectum grossly appeared to be within normal limits. The scope was then retroflexed into the distal rectum and moderate size hypertrophied anal papillae were noted. There were some minute nodules and irregularities noted to overlie the hypertrophied anal papillae and biopsies were obtained. Also, there were some internal hemorrhoids, but there was no active bleeding. The scope was then straightened out. It was subsequently withdrawn. The patient tolerated procedure well. IMPRESSION: 1. Ascending colon polyp, snared, and polypectomy site hemoclipped. 2. Hypertrophied anal papillae with minimal nodularity. Biopsies obtained. 3. Internal hemorrhoids, none actively bleeding. PLAN: Follow up histology. Initiate VSL #3 one p.o. q.i.d. and Bentyl 10 mg one p.o. t.i.d. Timing of followup colonoscopy pending pathology report. Benson Kent MD [facility] [place] /[id number] cc: Matthew Pérez MD
== END | disposition home or self-care (01) ==
LOC: OR 06:19
PROVIDERS: ATTEND Internal Medicine Gastroenterology
DX: K62.5 Hemorrhage of anus and rectum (principal); K63.5 Polyp of colon; K29.70 Gastritis, unspecified, without bleeding; K20.9 Esophagitis, unspecified; K62.89 Other specified diseases of anus and rectum; K64.8 Other hemorrhoids; Z98.84 Bariatric surgery status; I89.0 Lymphedema, not elsewhere classified; F41.9 Anxiety disorder, unspecified; F17.220 Nicotine dependence, chewing tobacco, uncomplicated; Z88.8 Allergy status to other drugs, medicaments and biological substances; Z68.29 Body mass index [BMI] 29.0-29.9, adult
CPT/HCPCS: 36415; 43239; 45380; 45385; 85651; 86140; 86256; 86671; J1610; J1980; J2250; J2704

== ENCOUNTER → 2018-11-30 | Outpatient (CLI) | payer BC ==
[~2018-11-30] MED LIST changes: -FENTANYL CITRATE/PF 100MCG/2 ML INJ ONE; -GLUCAGON FOR INJ 1 MG VIAL ONE; -HYOSCYAMINE SULFATE 0.5 MG/ML INJ ONE; -MIDAZOLAM HCL 2 MG/2 ML VIAL ONE; -PROPOFOL IV EMULSION 10 MG/ML 50 ML VIAL ONE
--- NOTE | 2018-11-30 09:39 | Diagnostic Imaging Report ---
Examination: Fluoroscopic small bowel series. Clinical indication: Concern for Crohn's disease. Comparison examination: Abdominal ultrasound 03/09/2018. Technique: Barium was ingested by mouth and multiple overhead images of the small bowel were obtained. Fluoroscopic spot images of the distal small bowel, and terminal ileum were obtained. Fluoroscopy time: 1.8 minutes. Air Kerma: 111.75 mGy Findings: Wooden Furniture Polisher radiograph shows a nonobstructive bowel gas pattern. No mass effect or organomegaly. Intact regional skeletal structures. Small bowel loops are normal in course, caliber, and contour. No fixed stricture or abnormal displacement of bowel loops. Spot compression views of the terminal ileum were normal. Transit time is normal. Appendix is normal. Impression: Unremarkable fluoroscopic small bowel series. Signed by: Dr. Peter Escamilla M.D. on 11/30/2018 9:35 AM
== END ==
LOC: DX 07:34
PROVIDERS: ATTEND Internal Medicine Gastroenterology
DX: K50.90 Crohn's disease, unspecified, without complications (principal)
CPT/HCPCS: 74250

== ENCOUNTER 2018-12-22 19:06 | Emergency (ER) | payer BC ==
[~2018-12-22] VITALS: Ht 193 cm; Wt 102.1 kg
--- OUTSIDE RECORDS SUMMARY | 2018-12-22 19:09 | XMS REPORT | Clinical Summary ---
Author Author [facility] Organization [facility] Address Unknown Phone Unavailable Care Team Providers Care Animal Assisted Therapist Name Role Phone Franc Yoder MD PCP [...] EXAM 10/31/1991 URINE MICROALBUMIN 10/31/1991 INFLUENZA VACCINE 03/11/2019 Implants Device Identifier Shelf Expiration Date Model / Serial / Lot Implanted Type Area Manufactur er 01/09/2020 [id number] / / [id number] Stapler Surgcl Endopath [place] Surgical Anterior: W L GORE Flex 60 Endoscpc - [id number] Implants; Abdomen, Middle Implanted: 03/26/2017 (Quantity not Expanders; Quadrant/Non on file) Extenders; Specific Surgical Wires 01/09/2020 [id number] / / [id number] Stapler Surgcl Endopath [place] Surgical Anterior: W L GORE Flex 60 Endoscpc - [id number] Implants; Abdomen, Middle Implanted: 03/26/2017 (Quantity not Expanders; Quadrant/Non on file) Extenders; Specific Surgical Wires 01/09/2020 [id number] / / [id number] Stapler Surgcl Endopath [place] Surgical Anterior: W L GORE Flex 60 Endoscpc - [id number] Implants; Abdomen, Middle Implanted: 03/26/2017 (Quantity not Expanders; Quadrant/Non on file) Extenders; Specific Surgical Wires 01/09/2020 [id number] / / [id number] Stapler Surgcl Endopath [place] Surgical Anterior: W L GORE Flex 60 Endoscpc - [id number] Implants; Abdomen, Middle Implanted: 03/26/2017 (Quantity not Expanders; Quadrant/Non on file) Extenders; Specific Surgical Wires 01/09/2020 [id number] / / [id number] Stapler Surgcl Endopath [place] Surgical Anterior: W L GORE Flex 60 Endoscpc - [id number] Implants; Abdomen, Middle Implanted: 03/26/2017 (Quantity not Expanders; Quadrant/Non on file) Extenders; Specific Surgical Wires 02/08/2020 GST60B / / [id number] Endopath [place] N/A: Abdomen ETHICON Implanted: Qty: 3 on 03/26/2017 by ENDO-SURGE Vijay Juarez MD RY 09/10/2019 GST60D / / [id number] Endopath [place] N/A: Abdomen ETHICON Implanted: Qty: 1 on 03/26/2017 by Vijay Merrill MD 01/09/2020 GST60G / / [id number] Endopath [place] N/A: Abdomen ETHICON Implanted: Qty: 1 on 03/26/2017 by Vijay Merrill MD Results Not on fileafter 12/21/2017 Advance Directives Patient has advance care planning documents, and code status on file. For more i nformation, please contact: Lucas Canchola [address] [place] [address] Date Inactivated Comments Code Status Date Activated 03/27/2017 10:06 PM Full Code 03/26/2017 4:16 PM Code Status decision reached by: Patient
[2018-12-22] MEDS ORDERED: PREDNISONE 20 MG TAB PO ONE (21:15)
[2018-12-22] MEDS ORDERED: ONDANSETRON HCL 4 MG ORAL DISINTEGRATING TAB PO ONE (21:15)
[2018-12-22] MEDS ORDERED: KETOROLAC TROMETHAMINE 60 MG/2 ML VIAL IM ONE (21:15)
[2018-12-22] MEDS ORDERED: DIAZEPAM 5 MG TAB PO ONE (21:15)
[2018-12-22 21:53] VITALS: BP 115/70
== END 2018-12-22 21:55 | disposition home or self-care (01) ==
LOC: ER 19:06
DX: M54.42 Lumbago with sciatica, left side (principal); M54.16 Radiculopathy, lumbar region
CPT/HCPCS: 96372; 99283; J1885; J7512; Q0162

== ENCOUNTER 2019-02-17 09:58 | Emergency (ER) | payer BC ==
--- NOTE | 2019-02-17 10:02 | NUR ---
WHEN CALLED TO TRIAGE ,PATIENT STATES THAT HE IS GOING TO DR KIMBALL OFFICE INSTEAD OF BEING SEEN BY ER DOCTOR, STATES THAT HE CALLED DR KIMBALL OFFICE AND WILL BE SEEN IN OFFICE BY DR KIMBALL. EDUCATED PATIENT ON THE RISKS OF LEAVING AGAINST MEDICAL,VERBALIZED UNDERSTANDING. PATIENT SIGNED OUT AGAINST MEDICAL ADVICE, NOTIFIED DR TANG. DR TANG EDUCATED PATIENT ON RISKS OF LWAVING AGAINST MEDICAL ADVICE,VERBALIZED UNDERSTANDING. PATIENT AMBULATORY OUT OF DEPARTMENT.
--- OUTSIDE RECORDS SUMMARY | 2019-02-17 10:02 | XMS REPORT | Clinical Summary ---
Author Author [facility] Address Unknown Phone Unavailable Care Team Providers Care Coat Maker Name Role Phone Franc Yoder MD PCP [...] Lot Implanted Type Area Manufactur er 01/09/2020 [id number] / / [id number] Stapler Surgcl Endopath [place] Surgical Anterior: W L GORE Flex 60 Endoscpc - [id number] Implants; Abdomen, Middle Implanted: 03/26/2017 (Quantity not Expanders; Quadrant/Non on file) Extenders; Specific Surgical Wires 01/09/2020 [id number] / / [id number] Stapler Surgcl Endopath [place] Surgical Anterior: W L GORE Flex 60 Endoscpc - [id number] Implants; Abdomen, Middle Implanted: 03/26/2017 (Quantity not Expanders; Quadrant/Non on file) Extenders; Specific Surgical Wires 01/09/2020 [id number] / / [id number] Stapler Surgcl Endopath [place] Surgical Anterior: W L GORE Flex 60 Endoscpc - [id number] Implants; Abdomen, Middle Implanted: 03/26/2017 (Quantity not Expanders; Quadrant/Non on file) Extenders; Specific Surgical Wires 01/09/2020 [id number] / / [id number] Stapler Surgcl Endopath [place] Surgical Anterior: W L GORE Flex 60 Endoscpc - [id number] Implants; Abdomen, Middle Implanted: 03/26/2017 (Quantity not Expanders; Quadrant/Non on file) Extenders; Specific Surgical Wires 01/09/2020 [id number] / / [id number] Stapler Surgcl Endopath [place] Surgical Anterior: W L GORE Flex 60 Endoscpc - [id number] Implants; Abdomen, Middle Implanted: 03/26/2017 (Quantity not Expanders; Quadrant/Non on file) Extenders; Specific Surgical Wires 02/08/2020 GST60B / / [id number] [facility]opath [place] N/A: Abdomen ETHICON Implanted: Qty: 3 on 03/26/2017 by ENDO-SURGE Vijay Juarez MD RY 09/10/2019 GST60D / / [id number] [facility]opath [place] N/A: Abdomen ETHICON Implanted: Qty: 1 on 03/26/2017 by Vijay Merrill MD 01/09/2020 GST60G / / [id number] [facility]opath [place] N/A: Abdomen ETHICON Implanted: Qty: 1 on 03/26/2017 by Vijay Merrill MD Results Not on fileafter 02/16/2018 Advance Directives Patient has advance care planning documents, and code status on file. For more i nformation, please contact: Lucas Canchola [address] [place] [address] Date Inactivated Comments Code Status Date Activated 03/27/2017 10:06 PM Full Code 03/26/2017 4:16 PM Code Status decision reached by: Patient
--- OUTSIDE RECORDS SUMMARY | 2019-02-17 10:03 | XMS REPORT | Continuity of Care Document ---
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 Phone [employer] Information [employer] Shared [employer] Unavailable Unavailable Problems Problem Status Onset Date Classification Date Reported Comments Source Confusion and disorientation Active 11/04/2015 Problem 12/23/2018 [facility] Dehydration Active 11/04/2015 Problem 12/23/2018 [facility] Lumbago with sciatica, left side Active Diagnosis 10/16/2018 Neftali Azeb Medications Medication Details Route Status Patient Instructions Ordering Provider Order Date Source Acetaminophen With Codeine (Tylenol With Codeine #3 Tablet) 1 Each Tablet, 300 Mg Oral As Needed Active 2018 [facility] Diclofenac Sodium 75 Mg Tablet.dr, 75 Mg Oral Twice A Day Active 2018 [facility] Ergocalciferol (Vitamin D2) (Vitamin D2) 50,000 Unit Capsule, 31482 Units Oral Wkly Active 2018 [facility] Dicyclomine Hcl 20 Mg Tablet, 20 Mg Oral Every 6 Hours Active 03/11/2018 [facility] Levofloxacin (Levaquin) 500 Mg Tablet, 500 Mg Oral Daily Active 03/11/2018 [facility] Tamsulosin Hcl (Flomax*) 0.4 Mg Cap, 0.4 Mg Oral Daily Active 03/11/2018 [facility] Dicyclomine Hcl 20 Mg Tablet, 20 Mg Oral Every 6 Hours Active 03/11/2018 [facility] Levofloxacin (Levaquin) 500 Mg Tablet, 500 Mg Oral Daily Active 03/11/2018 [facility] Tamsulosin Hcl (Flomax*) 0.4 Mg Cap, 0.4 Mg Oral Daily Active 03/11/2018 [facility] Butalbital 25 Gm Powder, 1 Tab Oral As Needed Active 03/10/2018 [facility] Fluoxetine Hcl 20 Mg Capsule, 40 Mg Oral Daily Active 03/10/2018 [facility] Hydrocodone Bit/Acetaminophen ([place] 10-325 Tablet) 1 Each Tablet, 10 Mg Oral Every 4 Hours Active 03/10/2018 [facility] Fluoxetine Hcl 20 Mg Capsule, 40 Mg Oral Daily Active 03/10/2018 [facility] Ondansetron (Zofran Odt) 4 Mg Tab.rapdis, 4 Mg Oral Every 6 Hours Active 12/30/2017 [facility] Ondansetron (Zofran Odt) 4 Mg Tab.rapdis, 4 Mg Oral Every 6 Hours Active 12/30/2017 [facility] Amoxicillin 250 Mg Capsule, 500 Mg Oral Three Times A Day Active 11/06/2015 [facility] Cefdinir (Omnicef) 300 Mg Capsule, 300 Mg Oral Daily Active 11/06/2015 [facility] Famotidine (Pepcid) 20 Mg Tablet, 20 Mg Oral Twice Daily Before Meals Active [facility] 11/06/2015 [facility] Metronidazole (Flagyl) 500 Mg Tablet, 250 Mg Oral Every 8 Hours Active [facility] 11/06/2015 [facility] Nicotine (Nicoderm Cq) 1 Each Patch.td24, 21 Mg Topically Daily Active [facility] 11/06/2015 [facility] Sertraline Hcl (Zoloft) 25 Mg Tablet, Active 11/06/2015 [facility] Amoxicillin 250 Mg Capsule, 500 Mg Oral Three Times A Day Active 11/06/2015 [facility] Cefdinir (Omnicef) 300 Mg Capsule, 300 Mg Oral Daily Active 11/06/2015 [facility] Famotidine (Pepcid) 20 Mg Tablet, 20 Mg Oral Twice Daily Before Meals Active [facility] 11/06/2015 [facility] Metronidazole (Flagyl) 500 Mg Tablet, 250 Mg Oral Every 8 Hours Active [facility] 11/06/2015 [facility] Nicotine (Nicoderm Cq) 1 Each Patch.td24, 21 Mg Topically Daily Active [facility] 11/06/2015 [facility] MethylPREDNISolone 1 tablet with food or milk in the morning Orally Active 4 MG Orally [facility] Lyrica 1 capsule Orally Active 75 MG Orally Once a day [facility] Cymbalta 1 capsule Orally Active 30 MG Orally Once a day [facility] Oxycodone-Acetaminophen 1 tablet as needed Orally Active 10-325 MG Orally every 6 hrs [facility] Omeprazole 1 capsule Orally Active 40 MG Orally Once a day [facility] Tuscarora 1 tablet as needed Orally Active 10-325 MG Orally every 6 hrs [facility] Methocarbamol 1 tablet Orally Active 750 MG Orally every 4 hrs [facility] Gabapentin 1 capsule Orally Active 100 MG Orally Three times a day [facility] PredniSONE 1 tablet Orally Active 20 MG Orally Once a day [facility] Levaquin 1 tablet Orally Active 500 MG Orally Once a day [facility] Vitamin D (Ergocalciferol) 1 capsule Orally Active 99901 UNIT Orally [facility] Fluoxetine HCl 1 tablet Orally Active 60 MG Orally Once a day [facility] Acetaminophen With Codeine (Tylenol With Codeine #3 Tablet) 1 Each Tablet As Needed Active [facility] Diclofenac Sodium 75 Mg Tablet.dr Twice A Day Active THERAPEUTICALLY SUBSTITUTED WITH IBUPROFEN 600MG [facility] Ergocalciferol (Vitamin D2) (Vitamin D2) 50,000 Unit Capsule Wkly Active [facility] Fluoxetine Hcl 40 Mg Capsule Daily Active [facility] Cyclobenzaprine Hcl (Flexeril) 5 Mg Tablet Bedtime as needed for Back Pain Active [facility] Cymbalta Daily Active [facility] Fluoxetine Hcl 40 Mg Capsule Daily Active [facility] Pregabalin (Lyrica) 75 Mg Cap Twice A Day Active [facility] Allergies, Adverse Reactions, Alerts Substance Category Reaction Severity Reaction type Status Date Reported Comments Source Succinylcholine Chloride Adverse Reaction Info Not Available Adverse Reaction Active 09/23/2018 Neftali Bowie Succinylcholine PSEUDOCHOLINESTERASE DEFICIENCY Unknown Allergy to Substance Active 2018 [facility] Immunizations No Data Provided for This Section Results Order Name Results Value Reference Range Date Interpretation Comments Source Erythrocyte sedimentation rate by Westergren method 9 0 - 13 11/02/2018 [facility] Serum jesus's yeast IgG antibody assay (units/volume) 51.4 0.0 - 24.9 11/02/2018 [facility] Serum jesus's yeast IgA antibody assay (units/volume) 26.9 0.0 - 24.9 11/02/2018 [facility] Serum atypical perinuclear neutrophil cytoplasmic antibody titer by immunofluorescence <1:20 Neg:<1:20 11/02/2018 [facility] Serum or plasma C reactive protein measurement (mass/volume) 1.1 0.0 - 4.9 11/02/2018 [facility] Urine color determination YELLOW YELLOW 04/30/2018 [facility] Urine clarity SL CLOUDY CLEAR 04/30/2018 [facility] Specific gravity of Urine by Test strip 1.010 1.010 - 1.025 04/30/2018 [facility] Urine pH measurement by automated test strip 6.5 5 - 7 04/30/2018 [facility] Urine leukocyte esterase detection by dipstick NEGATIVE NEGATIVE 04/30/2018 [facility] Urine nitrite detection NEGATIVE NEGATIVE 04/30/2018 [facility] Urine protein measurement by test strip (mass/volume) NEGATIVE NEGATIVE 04/30/2018 [facility] Urine glucose detection NEGATIVE NEGATIVE 04/30/2018 [facility] Urine ketones detection by automated test strip NEGATIVE NEGATIVE 04/30/2018 [facility] Urine urobilinogen measurement by test strip (mass/volume) 0.2 0.2 - 1 04/30/2018 [facility] Urine total bilirubin measurement (mass/volume) NEGATIVE NEGATIVE 04/30/2018 [facility] Urine erythrocytes detection 3+ NEGATIVE 04/30/2018 [facility] Automated urine sediment leukocyte count by microscopy (number/high power field) NONE 0 - 5 04/30/2018 [facility] Erythrocytes detection in urine sediment by light microscopy 21-50 0 - 5 04/30/2018 [facility] Bacteria detection in urine sediment by light microscopy RARE NONE 04/30/2018 [facility] Epithelial cells detection in urine sediment by light microscopy FEW NONE 04/30/2018 [facility] Amorphous sediment detection in urine sediment by light microscopy RARE FEW 04/30/2018 [facility] Amorphous sediment detection in urine sediment by light microscopy Amorphous sediment detection in urine sediment by light microscopy RARE FEW 04/30/2018 [facility] Automated urine sediment leukocyte count by microscopy (number/high power field) Automated urine sediment leukocyte count by microscopy (number/high power field) NONE 0 - 5 04/30/2018 [facility] Bacteria detection in urine sediment by light microscopy Bacteria detection in urine sediment by light microscopy RARE NONE 04/30/2018 [facility] Epithelial cells detection in urine sediment by light microscopy Epithelial cells detection in urine sediment by light microscopy FEW NONE 04/30/2018 [facility] Erythrocytes detection in urine sediment by light microscopy Erythrocytes detection in urine sediment by light microscopy <50 0 - 5 04/30/2018 [facility] Specific gravity of Urine by Test strip Specific gravity of Urine by Test strip 1.010 1.010 - 1.025 04/30/2018 [facility] Urine clarity Urine clarity SL CLOUDY CLEAR 04/30/2018 [facility] Urine color determination Urine color determination YELLOW YELLOW 04/30/2018 [facility] Urine erythrocytes detection Urine erythrocytes detection 3+ NEGATIVE 04/30/2018 [facility] Urine glucose detection Urine glucose detection NEGATIVE NEGATIVE 04/30/2018 [facility] Urine ketones detection by automated test strip Urine ketones detection by automated test strip NEGATIVE NEGATIVE 04/30/2018 [facility] Urine leukocyte esterase detection by dipstick Urine leukocyte esterase detection by dipstick NEGATIVE NEGATIVE 04/30/2018 [facility] Urine nitrite detection Urine nitrite detection NEGATIVE NEGATIVE 04/30/2018 [facility] Urine pH measurement by automated test strip Urine pH measurement by automated test strip 6.5 5 - 7 04/30/2018 [facility] Urine protein measurement by test strip (mass/volume) Urine protein measurement by test strip (mass/volume) NEGATIVE NEGATIVE 04/30/2018 [facility] Urine total bilirubin measurement (mass/volume) Urine total bilirubin measurement (mass/volume) NEGATIVE NEGATIVE 04/30/2018 [facility] Urine urobilinogen measurement by test strip (mass/volume) Urine urobilinogen measurement by test strip (mass/volume) 0.2 0.2 - 1 04/30/2018 [facility] Automated blood monocyte count as percentage of total leukocytes 8.3 4.4 - 11.3 04/30/2018 [facility] Automated blood eosinophil count 0.2 0.0 - 0.4 04/30/2018 [facility] Serum or plasma protein measurement (mass/volume) 7.0 6.5 - 8.1 04/30/2018 [facility] Plasma globulin measurement (mass/volume) 3.3 2.3 - 3.5 04/30/2018 [facility] Blood leukocytes automated count (number/volume) 7.60 4.8 - 10.8 04/30/2018 [facility] Blood erythrocytes automated count (number/volume) 4.83 4.3 - 5.7 04/30/2018 [facility] Blood hemoglobin measurement (moles/volume) 14.1 14.0 - 18.0 04/30/2018 [facility] Automated blood hematocrit (volume fraction) 44.4 38.2 - 49.6 04/30/2018 [facility] Automated erythrocyte mean corpuscular volume 91.9 81 - 99 04/30/2018 [facility] Automated erythrocyte mean corpuscular hemoglobin (mass per erythrocyte) 29.2 28 - 32 04/30/2018 [facility] Automated erythrocyte mean corpuscular hemoglobin concentration measurement (mass/volume) 31.8 31 - 35 04/30/2018 [facility] RDW BldCo-Rto 13.7 11.7 - 14.4 04/30/2018 [facility] Automated blood platelet count (count/volume) 229 140 - 360 04/30/2018 [facility] Automated blood segmented neutrophil count as percentage of total leukocytes 74.1 38.7 - 80.0 04/30/2018 [facility] Automated blood lymphocyte count as percentage ot total leukocytes 14.2 18.0 - 39.1 04/30/2018 [facility] Automated blood eosinophil count as percentage of total leukocytes 2.4 0.0 - 6.0 04/30/2018 [facility] Automated blood basophil count as percentage of total leukocytes 0.5 0.0 - 1.0 04/30/2018 [facility] IM GRANULOCYTES % 0.5 0.0 - 1.0 04/30/2018 [facility] Automated blood neutrophil count 5.6 2.1 - 6.9 04/30/2018 [facility] Blood lymphocytes count (number/volume) 1.1 1.0 - 3.2 04/30/2018 [facility] Blood monocytes automated count (number/volume) 0.6 0.2 - 0.8 04/30/2018 [facility] Automated blood basophil count (count/volume) 0.0 0.0 - 0.1 04/30/2018 [facility] Absolute Immature Granulocyte (auto 0.04 0 - 0.1 04/30/2018 [facility] Serum or plasma sodium measurement (moles/volume) 141 136 - 145 04/30/2018 [facility] Serum or plasma potassium measurement (moles/volume) 3.8 3.5 - 5.1 04/30/2018 [facility] Serum or plasma chloride measurement (moles/volume) 106 98 - 107 04/30/2018 [facility] Serum or plasma carbon dioxide, total measurement (moles/volume) 25 22 - 29 04/30/2018 [facility] Serum or plasma anion gap 13.8 8 - 16 04/30/2018 [facility] Serum or plasma urea nitrogen measurement (mass/volume) 8 7 - 26 04/30/2018 [facility] Serum or plasma creatinine measurement (mass/volume) 0.72 0.72 - 1.25 04/30/2018 [facility] Serum or plasma urea nitrogen/creatinine mass ratio 11 6 - 25 04/30/2018 [facility] Estimated glomerular filtration rate (GFR) determination > 60 60 04/30/2018 [facility] Glucose measurement 94 74 - 118 04/30/2018 [facility] Serum or plasma calcium measurement (mass/volume) 11.1 8.4 - 10.2 04/30/2018 [facility] Lactic Acid Level 16.5 4.5 - 19.8 04/30/2018 [facility] Serum or plasma total bilirubin measurement (mass/volume) 0.7 0.2 - 1.2 04/30/2018 [facility] Aspartate Amino Transf (AST/SGOT) 14 5 - 34 04/30/2018 [facility] Serum or plasma alanine aminotransferase measurement (enzymatic activity/volume) 12 0 - 55 04/30/2018 [facility] Serum or plasma albumin measurement (mass/volume) 3.7 3.5 - 5.0 04/30/2018 [facility] Serum or plasma albumin/globulin mass ratio 1.1 0.8 - 2.0 04/30/2018 [facility] Serum or plasma alkaline phosphatase measurement (enzymatic activity/volume) 111 40 - 150 04/30/2018 [facility] Serum or plasma amylase measurement (enzymatic activity/volume) 46 25 - 125 04/30/2018 [facility] Serum or plasma lipase measurement (enzymatic activity/volume) 19 8 - 78 04/30/2018 [facility] Blood culture NO GROWTH AFTER 5 DAYS, FINAL REPORT 04/30/2018 [facility] Automated blood basophil count (count/volume) Automated blood basophil count (count/volume) 0.0 0.0 - 0.1 04/30/2018 [facility] Automated blood basophil count as percentage of total leukocytes Automated blood basophil count as percentage of total leukocytes 0.5 0.0 - 1.0 04/30/2018 [facility] Automated blood eosinophil count Automated blood eosinophil count 0.2 0.0 - 0.4 04/30/2018 [facility] Automated blood eosinophil count as percentage of total leukocytes Automated blood eosinophil count as percentage of total leukocytes 2.4 0.0 - 6.0 04/30/2018 [facility] Automated blood hematocrit (volume fraction) Automated blood hematocrit (volume fraction) 44.4 38.2 - 49.6 04/30/2018 [facility] Automated blood lymphocyte count as percentage ot total leukocytes Automated blood lymphocyte count as percentage ot total leukocytes 14.2 18.0 - 39.1 04/30/2018 [facility] Automated blood monocyte count as percentage of total leukocytes Automated blood monocyte count as percentage of total leukocytes 8.3 4.4 - 11.3 04/30/2018 [facility] Automated blood neutrophil count Automated blood neutrophil count 5.6 2.1 - 6.9 04/30/2018 [facility] Automated blood platelet count (count/volume) Automated blood platelet count (count/volume) 229 140 - 360 04/30/2018 [facility] Automated blood segmented neutrophil count as percentage of total leukocytes Automated blood segmented neutrophil count as percentage of total leukocytes 74.1 38.7 - 80.0 04/30/2018 [facility] Automated erythrocyte mean corpuscular hemoglobin (mass per erythrocyte) Automated erythrocyte mean corpuscular hemoglobin (mass per erythrocyte) 29.2 28 - 32 04/30/2018 [facility] Automated erythrocyte mean corpuscular hemoglobin concentration measurement (mass/volume) Automated erythrocyte mean corpuscular hemoglobin concentration measurement (mass/volume) 31.8 31 - 35 04/30/2018 [facility] Automated erythrocyte mean corpuscular volume Automated erythrocyte mean corpuscular volume 91.9 81 - 99 04/30/2018 [facility] Blood erythrocytes automated count (number/volume) Blood erythrocytes automated count (number/volume) 4.83 4.3 - 5.7 04/30/2018 [facility] Blood hemoglobin measurement (moles/volume) Blood hemoglobin measurement (moles/volume) 14.1 14.0 - 18.0 04/30/2018 [facility] Blood leukocytes automated count (number/volume) Blood leukocytes automated count (number/volume) 7.60 4.8 - 10.8 04/30/2018 [facility] Blood lymphocytes count (number/volume) Blood lymphocytes count (number/volume) 1.1 1.0 - 3.2 04/30/2018 [facility] Blood monocytes automated count (number/volume) Blood monocytes automated count (number/volume) 0.6 0.2 - 0.8 04/30/2018 [facility] Estimated glomerular filtration rate (GFR) determination Estimated glomerular filtration rate (GFR) determination >60 60 04/30/2018 [facility] Glucose measurement Glucose measurement 94 74 - 118 04/30/2018 [facility] Plasma globulin measurement (mass/volume) Plasma globulin measurement (mass/volume) 3.3 2.3 - 3.5 04/30/2018 [facility] Serum or plasma alanine aminotransferase measurement (enzymatic activity/volume) Serum or plasma alanine aminotransferase measurement (enzymatic activity/volume) 12 0 - 55 04/30/2018 [facility] Serum or plasma albumin measurement (mass/volume) Serum or plasma albumin measurement (mass/volume) 3.7 3.5 - 5.0 04/30/2018 [facility] Serum or plasma albumin/globulin mass ratio Serum or plasma albumin/globulin mass ratio 1.1 0.8 - 2.0 04/30/2018 [facility] Serum or plasma alkaline phosphatase measurement (enzymatic activity/volume) Serum or plasma alkaline phosphatase measurement (enzymatic activity/volume) 111 40 - 150 04/30/2018 [facility] Serum or plasma amylase measurement (enzymatic activity/volume) Serum or plasma amylase measurement (enzymatic activity/volume) 46 25 - 125 04/30/2018 [facility] Serum or plasma anion gap Serum or plasma anion gap 13.8 8 - 16 04/30/2018 [facility] Serum or plasma calcium measurement (mass/volume) Serum or plasma calcium measurement (mass/volume) 11.1 8.4 - 10.2 04/30/2018 [facility] Serum or plasma carbon dioxide, total measurement (moles/volume) Serum or plasma carbon dioxide, total measurement (moles/volume) 25 22 - 29 04/30/2018 [facility] Serum or plasma chloride measurement (moles/volume) Serum or plasma chloride measurement (moles/volume) 106 98 - 107 04/30/2018 [facility] Serum or plasma creatinine measurement (mass/volume) Serum or plasma creatinine measurement (mass/volume) 0.72 0.72 - 1.25 04/30/2018 [facility] Serum or plasma lipase measurement (enzymatic activity/volume) Serum or plasma lipase measurement (enzymatic activity/volume) 19 8 - 78 04/30/2018 [facility] Serum or plasma potassium measurement (moles/volume) Serum or plasma potassium measurement (moles/volume) 3.8 3.5 - 5.1 04/30/2018 [facility] Serum or plasma protein measurement (mass/volume) Serum or plasma protein measurement (mass/volume) 7.0 6.5 - 8.1 04/30/2018 [facility] Serum or plasma sodium measurement (moles/volume) Serum or plasma sodium measurement (moles/volume) 141 136 - 145 04/30/2018 [facility] Serum or plasma total bilirubin measurement (mass/volume) Serum or plasma total bilirubin measurement (mass/volume) 0.7 0.2 - 1.2 04/30/2018 [facility] Serum or plasma urea nitrogen measurement (mass/volume) Serum or plasma urea nitrogen measurement (mass/volume) 8 7 - 26 04/30/2018 [facility] Serum or plasma urea nitrogen/creatinine mass ratio Serum or plasma urea nitrogen/creatinine mass ratio 11 6 - 25 04/30/2018 [facility] Absolute Immature Granulocyte (auto 0.04 0 - 0.1 04/30/2018 [facility] Serum or plasma intact pararthyroid hormone measurement (mass/volume) 154 15 - 65 03/11/2018 [facility] Serum or plasma calcium measurement (mass/volume) 10.6 8.7 - 10.2 03/11/2018 [facility] Parathyroid Hormone Interpretation Comment . 03/11/2018 [facility] Serum or plasma calcium measurement (mass/volume) Serum or plasma calcium measurement (mass/volume) 10.6 8.7 - 10.2 03/11/2018 [facility] Serum or plasma intact pararthyroid hormone measurement (mass/volume) Serum or plasma intact pararthyroid hormone measurement (mass/volume) 154 15 - 65 03/11/2018 [facility] Parathyroid Hormone Interpretation Comment . 03/11/2018 [facility] Mucus detection in urine sediment by light microscopy Mucus detection in urine sediment by light microscopy FEW RARE 12/27/2017 [facility] Serum or plasma creatine kinase MB measurement (mass/volume) Serum or plasma creatine kinase MB measurement (mass/volume) 0.50 0 - 5.0 12/27/2017 [facility] Serum or plasma creatine kinase measurement (enzymatic activity/volume) Serum or plasma creatine kinase measurement (enzymatic activity/volume) 25 30 - 200 12/27/2017 [facility] Troponin I measurement by highly sensitive enzyme immunoassay Troponin I measurement by highly sensitive enzyme immunoassay <0.001 0 - 0.300 12/27/2017 [facility] Pathology Reports No Data Provided for This Section Diagnostic Reports No Data Provided for This Section Consultation Notes No Data Provided for This Section Discharge Summaries No Data Provided for This Section History and Physicals No Data Provided for This Section Vital Signs Vital Sign Value Date Comments Source Weight 237.4 09/23/2018 Neftali Bowie Height 75 09/23/2018 Neftali Bowie Temperature Oral (F) 96.8 F 09/23/2018 Neftali Bowie Heart Rate 64 09/23/2018 Neftali Bowie Diastolic (mm Hg) 86 09/23/2018 Neftali Bowie Systolic (mm Hg) 140 09/23/2018 Neftali Bowie Encounters Location Location Details Encounter Type Encounter Number Reason For Visit Attending Provider ADM Date DC Date Status Source Departed Emergency Room [id number] SELENA TANG MD 09/16/2017 09/16/2017 [facility] Departed Emergency Room [id number] FLORA IBANEZ MD 09/17/2017 09/17/2017 [facility] Departed Emergency Room [id number] AJIT SPENCER MD 12/27/2017 12/27/2017 [facility] Registered Surgical Day Care [id number] LUISA PÉREZ MD 12/31/2017 [facility] Registered Clinic [id number] SUNG SLOAN NP 03/09/2018 [facility] Registered [facility] Day [facility] [id number] ARNOLD RUANO MD 03/11/2018 [facility] Departed Emergency Room [id number] HOMER MUÑIZ MD 04/30/2018 04/30/2018 [facility] Registered Surgical Day Care [id number] YAMILE WOOD MD 11/02/2018 [facility] Registered Clinic [id number] YAMILE WOOD MD 11/30/2018 [facility] Departed Emergency Room [id number] MUSTAPHA BUSBY MD 12/22/2018 12/22/2018 [facility] Procedures Procedure Code Date Perfomer Comments Source EGD BIOPSY SINGLE/MULTIPLE [id number] 11/02/2018 [facility] COLONOSCOPY AND BIOPSY 57279 11/02/2018 [facility] COLONOSCOPY W/LESION REMOVAL 48115 11/02/2018 [facility] Magnetic resonance imaging of lumbar spine without then with contrast [id number] 04/30/2018 [facility] LAPAROSCOPIC CHOLECYSTECTOMY 06997 03/11/2018 GELBER [facility] US abdomen complete [id number] 03/09/2018 KARAMIMOGHASAM [facility] INJECT EPIDURAL PATCH [id number] 12/31/2017 BETO [facility] Magnetic resonance imaging of lumbar spine without contrast [id number] 09/17/2017 [facility] Assessment and Plan No Data Provided for This Section Plan of Care Plan of Care Date Source Discharge Date 12/22/18 9:55pm Disposition HOME, SELF-CARE Condition at Discharge Stable Instructions/Education Provided Back Pain Prescriptions See Medication Section Referrals CONCHA DE LA CRUZ MD Order Date: JOHNATHON Address: [address] [place] [id number] 12/22/2018 [facility] Discharge Date 04/30/18 2:29pm Disposition HOME, SELF-CARE Condition at Discharge Stable Instructions/Education Provided Back Pain Forms Provided Work/School Excuse Prescriptions See Medication Section Referrals CONCHA DE LA CRUZ MD Order Date: Call for an appointment Address: [address] [place] [id number] Additional Instructions/Education Take your medication as prescribed by your Pain Management Physician ([employer]). Your MRI does not show spinal cord compression. Call for follow up with your Primary Care Physcian / [employer]. Return for any new concerns. 04/30/2018 [facility] Social History Social History Date Source Social History Problem Response Recorded Date/Time Onset [...] Status Start Date Stop Date Never Smoker 12/22/2018 [facility] Family History No Data Provided for This Section Advance Directives Order Name Results Value Date Source Advance Directives Advance Directives Directive Response Recorded Date/Time Does the patient have an advance directive? No 11/04/15 5:09pm Do you have a Directive to Physician? No 12/22/18 7:04pm Do you have a Medical Power of Lead Shipper? No 12/22/18 7:04pm Do you have an out of hospital Do Not Resuscitate Order? No 12/22/18 7:04pm Do you have any special needs we should be aware of? No 12/22/18 7:04pm Do you have a support person here with you today? Yes 12/22/18 7:04pm Did patient receive Notice of Privacy Practices? Yes 12/22/18 7:04pm Did patient receive patient rights and responsibilities? Yes 12/22/18 7:04pm 12/22/2018 [facility] Advance Directives Advance Directives Directive Response Recorded Date/Time Does the patient have an advance directive? No 11/04/15 5:09pm If yes, is advance directive on file with [facility]? No 11/04/15 5:09pm If not on file with [facility] will patient provide a copy? No 09/17/17 1:36pm Do you have a Directive to Physician? No 04/30/18 11:09am Do you have a Medical Power of Lead Shipper? No 04/30/18 11:09am Do you have an out of hospital Do Not Resuscitate Order? No 04/30/18 11:09am Do you have any special needs we should be aware of? No 04/30/18 11:09am Do you have a support person here with you today? Yes 04/30/18 11:10am Did patient receive Notice of Privacy Practices? Yes 04/30/18 11:10am Did patient receive patient rights and responsibilities? Yes 04/30/18 11:10am 04/30/2018 [facility] Functional Status No Data Provided for This Section
--- OUTSIDE RECORDS SUMMARY | 2019-02-17 10:04 | XMS REPORT ---
Author Author Charanjit Bowie Organization [employer] Address Unknown Phone Unavailable Care Team Providers Care Rap Artist Name Role Phone Charanjit Bowie CP Unavailable Allergies No Known Allergies Problems Problem Type Condition Code Onset Dates Condition Status Problem Lumbago with sciatica, left side M54.42 Active Medications No Known Medications Results No Known Results Summary Purpose [employer] Submission
--- OUTSIDE RECORDS SUMMARY | 2019-02-17 10:04 | XMS REPORT ---
Author Author Juanis Zhou Organization [employer] Address Unknown Phone Unavailable Care Team Providers Care Decision Support Analyst Name Role Phone Juanis Zhou CP Unavailable Allergies, Adverse Reactions, Alerts Substance Reaction Event Type Succinylcholine Chloride Info Not Available Drug Allergy Problems Problem Type Condition Code Onset Dates Condition Status Assessment Lumbago with sciatica, left side M54.42 Active Problem Lumbago with sciatica, left side M54.42 Active Medications Medication Code System Code Instructions Start Date End Date Status Dosage MethylPREDNISolone ND 50737602944 4 MG Orally Active 1 tablet with food or milk in the morning Lyrica ND 94878852396 75 MG Orally Once a day Active [address] [facility] 13860369478 30 MG Orally Once a day Active 1 capsule Oxycodone-Acetaminophen [facility] 47828403820 10-325 MG Orally every 6 hrs Active 1 tablet as needed Omeprazole ND 16838358308 40 MG Orally Once a day Active [address] [facility] 64587758903 10-325 MG Orally every 6 hrs Active 1 tablet as needed Methocarbamol [facility] 32175721046 750 MG Orally every 4 hrs Active 1 tablet Gabapentin ND 83129430542 100 MG Orally Three times a day Active 1 capsule PredniSONE ND 72229867515 20 MG Orally Once a day Active [address] [facility] 92589325973 500 MG Orally Once a day Active 1 tablet Vitamin D (Ergocalciferol) [facility] 13142810639 50686 UNIT Orally Active 1 capsule Fluoxetine HCl ND 45572473091 60 MG Orally Once a day Active 1 tablet Vital Signs Date/Time: Sep 23, 2018 BMI 30 Index Weight 237.4 lbs Height 75 in Temperature 96.8 F Cardiac Monitoring Heart Rate 64 /min Blood Pressure Diastolic 86 mm Hg Blood Pressure Systolic 140 mm Hg Results No Known Results Summary Purpose [employer] Submission
--- OUTSIDE RECORDS SUMMARY | 2019-02-17 10:04 | XMS REPORT ---
Author Author Charanjit Bowie Organization [employer] Address Unknown Phone Unavailable Care Team Providers Care Physician Representative Name Role Phone Charanjit Bowie CP Unavailable Allergies No Known Allergies Problems Problem Type Condition Code Onset Dates Condition Status Problem Lumbago with sciatica, left side M54.42 Active Medications No Known Medications Results No Known Results Summary Purpose [employer] Submission
== END 2019-02-17 10:02 | disposition left against medical advice (07) ==
LOC: ER 09:58
DX: R07.89 Other chest pain (principal)

== ENCOUNTER 2021-06-18 19:48 | Emergency (ER) | payer BC ==
[~2021-06-18] VITALS: Ht 193 cm; Wt 111.1 kg
[2021-06-18] MEDS ORDERED: SODIUM CHLORIDE 0.9% 1000ML 1,000 ML IV STA (19:55)
[2021-06-18 20:53] LABS: BASOPHILS # (AUTO) 0.1 (0.0-0.1); BASOPHILS % 0.7 % (0.0-1.0); EOSINOPHILS # (AUTO) 0.1 (0.0-0.4); EOSINOPHILS % 1.4 % (0.0-6.0); HEMATOCRIT 47.3 % (38.2-49.6); LYMPHOCYTES # (AUTO) 1.6 (1.0-3.2); LYMPHOCYTES % 23.1 % (18.0-39.1); MEAN CORPUSCULAR HEMOGLOBIN 28.7 pg (28-32); MEAN CORPUSCULAR HGB CONC 31.7 g/dL (31-35); MEAN CORPUSCULAR VOLUME 90.6 fL (81-99); MONOCYTES # (AUTO) 0.7 (0.2-0.8); MONOCYTES % 9.8 % (4.4-11.3); NEUTROPHILS # (AUTO) 4.5 (2.1-6.9); NEUTROPHILS % 64.4 % (38.7-80.0); PLATELET COUNT 235 x10e3/uL (140-360); RED BLOOD COUNT 5.22 x10e6/uL (4.3-5.7); RED CELL DISTRIBUTION WIDTH 14.5 % (11.7-14.4)
[2021-06-18 21:01] LABS: CLARITY,URINE CLEAR (CLEAR); COLOR,URINE YELLOW (YELLOW); KETONES,URINE NEGATIVE (NEGATIVE); LEUKOCYTE ESTERASE ,URINE NEGATIVE (NEGATIVE); NITRITE,URINE NEGATIVE (NEGATIVE); PROTEIN,URINE DIPSTICK NEGATIVE (NEGATIVE); URINE UROBILINOGEN 0.2 mg/dL (0.2 - 1)
[2021-06-18 21:05] LABS: AMPHETAMINES SCREEN,URINE NEGATIVE (NEGATIVE); BENZODIAZEPINES SCREEN,URINE NEGATIVE (NEGATIVE); PHENCYCLIDINE SCREEN,URINE NEGATIVE (NEGATIVE)
[2021-06-18 21:10] LABS: ALBUMIN/GLOBULIN RATIO 1.2 (0.8-2.0); ANION GAP 13.9 mmol/L (8-16); CALCIUM 9.9 mg/dL (8.4-10.2); CREATININE, SERUM 0.79 mg/dL (0.72-1.25); POTASSIUM 3.9 mmol/L (3.5-5.1)
[2021-06-18 21:11] LABS: BACTERIA,URINE RARE /HPF; EPITHELIAL CELLS,URINE RARE /LPF; RBC,URINE 0-5 /HPF (0-5); WBC,URINE (MAN) 0-5 /HPF (0-5)
[2021-06-18 21:18] LABS: CREATINE KINASE MB 1.2 ng/mL (0-5.0)
[2021-06-18] MEDS ORDERED: SODIUM CHLORIDE 0.9% 100 ML ONE (21:29)
[2021-06-18] MEDS ORDERED: IOPAMIDOL 370 MG/ML 200 ML INFUS..BTL INJ ONE (21:29)
[2021-06-18 22:49] VITALS: BP 136/80
== END 2021-06-18 23:00 | disposition home or self-care (01) ==
LOC: ER 20:01
DX: R47.81 Slurred speech (principal); R13.10 Dysphagia, unspecified; F32.A Depression, unspecified; M54.9 Dorsalgia, unspecified; G89.29 Other chronic pain; Z86.79 Personal history of other diseases of the circulatory system
CPT/HCPCS: 36415; 70450; 70496; 71045; 80053; 80307; 80320; 81001; 82550; 82553; 84484; 85025; 93005; 99283; J7030; J7050; Q9967